=== PATIENT | female | born 1960 | race African-American/Black ===

== ENCOUNTER 2017-04-03 01:37 | Emergency (ER) | payer MEDICARE, MEDICAID ==
[~2017-04-03] VITALS: Ht 170.2 cm; Wt 95.3 kg
[2017-04-03] MEDS ORDERED: Acetaminophen 500mg (ES) tab ORAL ONE (01:45)
[2017-04-03] MEDS ORDERED: LORazepam Inj 2mg/ml 1ml IV ONE (01:45)
[2017-04-03] MEDS ORDERED: NS 1000ml 2,900 ML IVLG ONE (01:45)
[2017-04-03] MEDS ORDERED: METOPROLOL TAR100 M1 ORAL (01:48)
[2017-04-03] MEDS ORDERED: VITAMIN D400 INTLU ORAL (01:48)
[2017-04-03] MEDS ORDERED: TRANSDERM-SCOP1.5 MG TD (01:48)
[2017-04-03] MEDS ORDERED: PERIDEX15 ML MM (01:48)
[2017-04-03] MEDS ORDERED: ACETAMINOPHEN325 M1 ORAL (01:48)
[2017-04-03] MEDS ORDERED: PEPCID20 MG ORAL (01:48)
[2017-04-03] MEDS ORDERED: KEPPRA LIQ100 MG/1 M ORAL (01:48)
[2017-04-03] MEDS ORDERED: SENNA8.6 M2 PO (01:48)
--- NOTE | 2017-04-03 01:51 | Emergency Room Report ---
History of Present Illness General Chief Complaint: Fever Source: Medical Record, EMS Present Illness HPI This is a 57-year-old female with a history of anoxic brain injury. She has seizure also. She is bed bound with tracheostomy and feeding tube. She is a DO NOT RESUSCITATE with comfort care. She is a [facility] patient. Patient presents with chief complaint of fever and tachycardia. According to EMS, fever was up to 104. Patient with tachycardia also. Unknown other complaint. Patient came from intermediate. History is through the intermediate note and EMS. Allergies: Coded Allergies: No Known Allergies (Unverified , 04/03/17) Patient History Past Medical History: see triage record, old chart reviewed Past Surgical History: other Pertinent Family History: none Social History: Denies: smoking Last Menstrual Period: n/a Now: No Immunizations: UTD Reviewed Nursing Documentation: PMH: Agreed, PSxH: Agreed Nursing Documentation-PMH Past Medical History: No History, Except For Hx Hypertension: Yes Hx Seizures: Yes - EPILEPSY Review of Systems Constitutional: Reports: fever All Other Systems: limited - Secondary to patient condition Physical Exam Vital Signs Date Time Temp Pulse Resp B/P Pulse Ox O2 Delivery O2 Flow Rate FiO2 04/03/17 01:32 104.0 147 23 95/52 95 Mechanical Ventilator vitals with fever and tachycardia. Also hypotension. Sp02 EP Interpretation: reviewed, abnormal General Appearance: moderate distress, lethargic, Chronically Ill Head: normocephalic, atraumatic Eyes: bilateral eye EOMI, bilateral eye PERRL ENT: dry mucus membranes Neck: full range of motion, supple, no meningismus, other - Tracheostomy tube clean and intact Respiratory: chest non-tender, decreased breath sounds, rhonchi Cardiovascular #1: regular rate, rhythm, no murmur, tachycardia Gastrointestinal: normal bowel sounds, non tender, no mass, no organomegaly, no bruit, non-distended, other - Feeding tube intact Musculoskeletal: other - Patient has contracted Neurologic: other - Patient with twitching of her face Psychiatric: mood/affect normal Skin: warm/dry Procedures Critical Care Time Critical Care Time Critical care is mandated in this patient who presented with sepsis. Patient require my urgent intervention to attenuate the risks of metabolic collapse which may lead to cardiovascular collapse and . Critical care time is 35 minutes excluding any reportable procedure. Critical care time included evaluation, multiple reevaluation, looking at old charts, interpreting laboratory and diagnostic data, discussing case with patient and family and consultants, and charting. Medical Decision Making Diagnostic Impression: Primary Impression: Sepsis Qualified Codes: A41.9 - Sepsis, unspecified organism Additional Impressions: Aspiration pneumonia Qualified Codes: J69.0 - Pneumonitis due to inhalation of food and vomit Anemia Qualified Codes: D64.9 - Anemia, unspecified Dehydration Hyperglycemia Seizure disorder ER Course Presents with fever and tachycardia. It appeared that she had a seizure. Unknown duration. This may explain the fever and Procardia. She may be septic secondary to pneumonia/aspiration. May be a mild urinary tract infection. Creatinine is 2.7 at baseline. I discussed the case with her [place] doctor who accepted the patient for transfer. Lab Results Impression labs with elevated bun/creat EKG Diagnostic Results Rate: tachycardiac Rhythm: NSR ST Segments: no acute changes Rhythm Strip Diag. Results EP Interpretation: yes Rate: 130 Rhythm: NSR, no PVC's, no ectopy Chest X-Ray Diagnostic Results EP Interpretation: Yes Findings: no effusion, no pneumothorax, no acute cardiopulmonary disease, other - rll infiltrate Number of Views: 1 Last Vital Signs Date Time Temp Pulse Resp B/P Pulse Ox O2 Delivery O2 Flow Rate FiO2 04/03/17 01:32 104.0 147 23 95/52 95 Mechanical Ventilator Status: improved Disposition: ER [facility] CHILO MURPHY M.D. April 03, 2017 01:51
[2017-04-03 02:06] LABS: MEAN CORPUSCULAR HEMOGLOBIN 27.5 PG (27.0-31.0); MEAN CORPUSCULAR HGB CONC 32.9 G/DL (32.0-36.0); MEAN CORPUSCULAR VOLUME 84 FL (80-99); MEAN PLATELET VOLUME 8.4 FL (6.5-10.1); PLATELET COUNT 243 K/UL (150-450); RED BLOOD COUNT 3.62 M/UL (4.20-5.40); RED CELL DISTRIBUTION WIDTH 12.5 % (11.6-14.8); WHITE BLOOD COUNT 11.4 K/UL (4.8-10.8)
[2017-04-03 02:10] LABS: ABG BASE EXCESS 1.6; ABG PCO2 33.9 mmHg (35.0-45.0)
[2017-04-03 02:11] LABS: ABG ALLEN TEST POSITIVE
[2017-04-03 02:18] LABS: INR 1.3 (0.9-1.1); PROTHROMBIN TIME 13.6 SEC (9.30-11.50)
[2017-04-03 02:22] LABS: ALANINE AMINOTRANSFERASE 56 U/L (3-33); ALBUMIN/GLOBULIN RATIO 0.5 (1.0-2.7); ANION GAP 17 (5-15); ASPARTATE AMINO TRANSFERASE 34 U/L (5-40); CALCIUM 8.1 mg/dL (8.6-10.2); CARBON DIOXIDE 24 mEQ/L (20-30); CHLORIDE 92 mEQ/L (98-107); CREATININE 2.4 mg/dL (0.5-0.9); HEMOLYSIS 2; SODIUM 133 mEQ/L (135-145); TOTAL PROTEIN 6.5 g/dL (6.6-8.7)
[2017-04-03 02:29] LABS: REFLEX LACTIC ACID YES OR NO YES
[2017-04-03 02:30] VITALS: BP 131/90
[2017-04-03 02:30] LABS: TROPONIN I < 0.30 ng/mL (<=0.30)
[2017-04-03 02:33] LABS: APPEARANCE,URINE SLIGHTLY CLOUDY; KETONES,URINE NEGATIVE (NEGATIVE); LEUKOCYTE ESTERASE ,URINE 3+ (NEGATIVE); NITRITE,URINE POSITIVE (NEGATIVE); PH,URINE 7 (4.5-8.0); PROTEIN,URINE 3+ (NEGATIVE); UROBILINOGEN,URINE 4 MG/DL (0.0-1.0)
[2017-04-03 02:38] LABS: ANISOCYTOSIS 1+; BAND NEUTROPHILS % (MANUAL) 0 % (0-8); BASOPHILS % (MANUAL) 1 % (0-2); EOSINOPHILS % (MANUAL) 0 % (0-3); HYPOCHROMASIA 1+; LYMPHOCYTES % (MANUAL) 8 % (20-45); NEUTROPHILS % (MANUAL) 88 % (45-75); PLATELET ESTIMATE ADEQUATE; PLATELET MORPHOLOGY NORMAL; SPHEROCYTES 1+; TOTAL CELLS COUNTED 100
[2017-04-03 02:43] LABS: RBC,URINE 20-30 /HPF (0 - 2); WBC,URINE 20-30 /HPF (0 - 2)
[2017-04-03 02:44] LABS: BACTERIA,URINE FEW /HPF; ICTOTEST POSITIVE; SQUAMOUS EPITHELIAL CELL,UR FEW /LPF (NONE/OCC)
[2017-04-03] MEDS ORDERED: levETIRAcetam 500mg vial IV ONE (02:53)
[2017-04-03] MEDS ORDERED: Piperacillin/Tazobactam 4.5 GM in NS 110 ML IVPB ONE (03:00)
[2017-04-03] MEDS ORDERED: levETIRAcetam 500 MG in D5W 110 ML IVPB ONE (03:00)
[2017-04-03] MEDS ORDERED: Zosyn 4.5gm inj ONE (03:12)
[2017-04-03 03:30] VITALS: BP 110/91
[2017-04-03 03:40] LABS: BILIRUBIN,DIRECT 5.1 mg/dL (0.1-0.3)
[2017-04-03 03:50] LABS: CKMB < 1.5 ng/mL (< 3.8)
[2017-04-03 04:52] VITALS: BP 93/73
[2017-04-03 04:58] VITALS: BP 124/85
[2017-04-03 05:17] VITALS: BP 93/73
--- NOTE | 2017-04-03 12:54 | Diagnostic Imaging Report ---
Indication: Chest pain Technique: One view of the chest Comparison: none Findings: The patient is rotated to the right. There is a tracheostomy. There is some atelectasis in the right perihilar region. The lungs and pleural spaces otherwise clear. Heart size is normal. Degenerative changes of the left shoulder are incidentally noted Impression: Right perihilar atelectasis. No acute process otherwise Tracheostomy
--- NOTE | 2017-04-03 16:40 | Cardiology Report ---
APPROVED REPORT EKG Measurement Heart [id number] Sinus tachycardia Otherwise normal ECG
== END 2017-04-03 05:28 | disposition short-term general hospital (02) ==
LOC: EDBD 01:37 → EMR 01:44
DX: A41.9 Sepsis, unspecified organism (principal); J69.0 Pneumonitis due to inhalation of food and vomit; I10 Essential (primary) hypertension; G40.909 Epilepsy, unspecified, not intractable, without status epilepticus; Z66 Do not resuscitate; Z93.0 Tracheostomy status
CPT/HCPCS: 36415; 36600; 71010; 80053; 81003; 82248; 82550; 82553; 82803; 82962; 83605; 84484; 85007; 85025; 85610; 85730; 87040; 87081; 87086; 87181; 93005; 94002; 96374; 96375; 99291; J1953; J1956; J2543

== ENCOUNTER 2018-05-12 12:30 | Inpatient (IN) | payer MEDICARE, MEDICAID ==
[~2018-05-12] VITALS: Ht 170.2 cm; Wt 90.7 kg
[2018-05-12 12:30] VITALS: BP_SYST 173; BP_SYST 85; BP_DIAS 108; BP_DIAS 60
[~2018-05-12 12:30] MED LIST: ACETAMINOPHEN325 M1 ORAL; KEPPRA LIQ100 MG/1 M ORAL; METOPROLOL TAR100 M1 ORAL; PEPCID20 MG GT; PERIDEX15 ML MM; SENNA8.6 M2 GT; TRANSDERM-SCOP1.5 MG TD; VITAMIN D400 INTLU ORAL
[2018-05-12] MEDS ORDERED: ATIVAN2 MG/1 ML IM (12:51)
[2018-05-12] MEDS ORDERED: VITAMIN D1000 UNI1 GT (12:51)
[2018-05-12] MEDS ORDERED: METOPROLOL TAR100 M1 GT (12:51)
[2018-05-12] MEDS ORDERED: DOCUSATE SODIU100 MG GT (12:51)
[2018-05-12] MEDS ORDERED: FOLIC ACID0.4 MG GT (12:51)
[2018-05-12] MEDS ORDERED: DIAZEPAM2 MG GT (12:51)
[2018-05-12] MEDS ORDERED: ASPIR 8181 MG GT (12:51)
[2018-05-12] MEDS ORDERED: IPRATROPIU0.2 MG/1 M HHN ×2 (12:51)
[2018-05-12] MEDS ORDERED: MINERAL OIL EN133 ML RC (12:51)
[2018-05-12] MEDS ORDERED: ALBUTEROL2.5 MG/3 M INH (12:51)
[2018-05-12] MEDS ORDERED: PERIDEX15 ML MM (12:51)
[2018-05-12] MEDS ORDERED: BISCOLAX10 MG RC (12:51)
[2018-05-12] MEDS ORDERED: ACETAMINOP160 MG/5 M GT (12:51)
[2018-05-12] MEDS ORDERED: LEVETIRACE100 MG/1 M GT (12:51)
[2018-05-12] MEDS ORDERED: MULTI-DELYN237 ML GT (12:51)
[2018-05-12] MEDS ORDERED: ATIVAN1 MG GT (12:51)
[2018-05-12] MEDS ORDERED: PHENYTOIN125 MG/5 M PO (12:51)
[2018-05-12 13:03] LABS: APPEARANCE,URINE CLOUDY; BILIRUBIN, URINE 1+ (NEGATIVE); COLOR,URINE BROWN; GLUCOSE, URINE (UA) NEGATIVE (NEGATIVE); KETONES,URINE NEGATIVE (NEGATIVE); LEUKOCYTE ESTERASE ,URINE 1+ (NEGATIVE); NITRITE,URINE NEGATIVE (NEGATIVE); PH,URINE 5 (4.5-8.0); PROTEIN,URINE 1+ (NEGATIVE); UROBILINOGEN,URINE 4 MG/DL (0.0-1.0)
[2018-05-12 13:11] LABS: ANION GAP 11 mmol/L (5-15); BLOOD UREA NITROGEN 69 mg/dL (7-18); CALCIUM 8.5 MG/DL (8.5-10.1); CARBON DIOXIDE 26 MMOL/L (21-32); CHLORIDE 105 MMOL/L (98-107); CREATININE 2.1 MG/DL (0.55-1.30); POTASSIUM 5.1 MMOL/L (3.5-5.1); SODIUM 142 MMOL/L (136-145)
[2018-05-12 13:12] LABS: HEMATOCRIT 40.6 % (37.0-47.0); HEMOGLOBIN 12.5 G/DL (12.0-16.0); MEAN CORPUSCULAR VOLUME 89 FL (80-99); PLATELET COUNT 745 K/UL (150-450); RED BLOOD COUNT 4.55 M/UL (4.20-5.40); RED CELL DISTRIBUTION WIDTH 14.9 % (11.6-14.8)
[2018-05-12 13:24] LABS: ALANINE AMINOTRANSFERASE 56 U/L (12-78); ALBUMIN 1.8 G/DL (3.4-5.0); ALBUMIN/GLOBULIN RATIO 0.3 (1.0-2.7); ALKALINE PHOSPHATASE 276 U/L (46-116); ASPARTATE AMINO TRANSFERASE 38 U/L (15-37); BILIRUBIN,TOTAL 0.9 MG/DL (0.2-1.0); CKMB < 0.5 NG/ML (0.0-3.6); CREATINE KINASE 31 U/L (26-308)
[2018-05-12 13:30] VITALS: BP 96/69
[2018-05-12] MEDS ORDERED: Azithromycin 500 MG in NS 275 ML IV ONE (13:45)
[2018-05-12] MEDS ORDERED: Piperacillin/Tazobactam 3.375 GM in NS 110 ML IVPB ONE (13:45)
[2018-05-12] MEDS ORDERED: Acetaminophen 650 MG SUPP RECTAL ONE (13:45)
--- NOTE | 2018-05-12 14:15 | Diagnostic Imaging Report ---
Indication: Dyspnea Comparison: 04/03/2017 A single view chest radiograph was obtained. Findings: Right hemithorax is opacified secondary to a moderate to large pleural effusion. Tracheostomy noted. Left lung appears clear. IMPRESSION: Right pleural effusion
--- NOTE | 2018-05-12 14:37 | Emergency Room Report ---
History of Present Illness General Chief Complaint: Dyspnea/Respdistress Source: Patient, EMS Present Illness HPI 58-year-old female presents ED for respiratory distress. Coming from [facility]. Nursing staff noted that patient was hypotensive and appeared short of breath 1 day. Patient has trach, on ventilator. Patient is nonverbal at baseline. Patient is DO NOT RESUSCITATE, comfort measures. Patient is febrile. Unable to provide any additional history at this time. No other aggravating relieving factors. Other associated symptoms Allergies: Coded Allergies: No Known Allergies (Unverified , 04/03/17) Patient History Past Medical History: HTN, seizures Past Surgical History: none Pertinent Family History: none Social History: Denies: smoking, alcohol use, drug use Last Menstrual Period: n/a Now: No Immunizations: UTD Reviewed Nursing Documentation: PMH: Agreed; PSxH: Agreed Nursing Documentation-PMH Hx Hypertension: Yes Hx Seizures: Yes Review of Systems All Other Systems: limited Physical Exam Vital Signs Date Time Temp Pulse Resp B/P (MAP) Pulse Ox O2 Delivery O2 Flow Rate FiO2 05/12/18 12:17 99.0 140 30 56/31 100 Mechanical Ventilator 99.0 05/12/18 12:30 15.0 40 Sp02 EP Interpretation: reviewed, normal General Appearance: other - nonverbal Head: normocephalic Eyes: bilateral eye normal inspection, bilateral eye PERRL ENT: hearing grossly normal, normal pharynx, no angioedema, normal voice Neck: tracheotomy Respiratory: decreased breath sounds, crackles Cardiovascular #1: no edema, tachycardia Gastrointestinal: normal inspection Rectal: deferred Genitourinary: no CVA tenderness Musculoskeletal: normal inspection Neurologic: other - nonverbal Psychiatric: other Skin: normal inspection Lymphatic: normal inspection Procedures Critical Care Time Critical Care Time i. I feel this is a highly complex case requiring extensive working including EKG/Rhythm strip, Xray/CT/US, Blood/urine lab work, repeat exams while in ED, and administration of strong opiates/narcotics for pain control, admission to hospital or close patient follow up. Total time: 30 min bedside evaluation and treatment excludes procedures (EKG). Reason for critical care: respriatory distress, hypotensive, sepsis Possible complications: hypotension, hypertension, PA, shock, arrhythmias, metabolic acidosis, end organ damage, respiratory failure. Interventions: labs, ivfs, ekg, cxr, abx Course: patient presenting with resp distress. hypotensive. febrile. given rectal tylenol. significant leukocytosis, lactate > 2, UA + bacteria. BP improved with IVFs. given broad spectrum abx Consultations: nursing staff, EMS, family Performed by: Dr Limon Tolerated well condition = serious j. because of unstable vital signs this patient had a condition that could potentially threaten life or limb. I feel this is a critical patient who required my full attention while patient was considered critical. Total Critical Care Time excluding procedures was greater than 35 minutes Medical Decision Making Diagnostic Impression: Primary Impression: Sepsis Qualified Codes: A41.9 - Sepsis, unspecified organism Additional Impressions: UTI (urinary tract infection) Qualified Codes: N39.0 - Urinary tract infection, site not specified Pleural effusion Renal insufficiency ER Course Hospital Course 58 yo F presents to ED with SOB, hypotensive, fever Differential diagnoses include: Pneumonia, UTI, sepsis, dehydration, PA/ unstable angina Clinical course Patient placed on stretcher. 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 After initial history and physical, I ordered labs, IV fluids, EKG, chest x- ray, blood cultures, UA. given rectal tylenol Labs - BUN/Cr elevated, marked leukocytosis, troponins negative, UA grossly positive for UTI, lactate > 2 EKG - sinus tachycardia no acute ischemic changes interpreted by me CXR - large R pleural effusion Abx given. Blood pressure initially low improved with IV fluids. Patient is DO NOT RESUSCITATE, comfort measures. Patient is [facility] patient however given unstable vitals approved patient to stay here Case discussed with Dr Bell and they agreed to admit patient to their service for further care and support I feel this is a highly complex case requiring extensive working including EKG/ Rhythm strip, Xray/CT/US, Blood/urine lab work, repeat exams while in ED, and administration of strong opiates/narcotics for pain control, admission to hospital or close patient follow up. Diagnosis - sepsis, UTI, pleural effusion, renal insufficiency Patient admitted to SDU in serious condition Labs Test 05/12/18 12:35 White Blood Count 36.0 K/UL (4.8-10.8) Red Blood Count 4.55 M/UL (4.20-5.40) Hemoglobin 12.5 G/DL (12.0-16.0) Hematocrit 40.6 % (37.0-47.0) Mean Corpuscular Volume 89 FL (80-99) Mean Corpuscular Hemoglobin 27.5 PG (27.0-31.0) Mean Corpuscular Hemoglobin Concent 30.8 G/DL (32.0-36.0) Red Cell Distribution Width 14.9 % (11.6-14.8) Platelet Count 745 K/UL (150-450) Mean Platelet Volume 6.1 FL (6.5-10.1) Neutrophils (%) (Auto) % (45.0-75.0) Lymphocytes (%) (Auto) % (20.0-45.0) Monocytes (%) (Auto) % (1.0-10.0) Eosinophils (%) (Auto) % (0.0-3.0) Basophils (%) (Auto) % (0.0-2.0) Differential Total Cells Counted 100 Neutrophils % (Manual) 82 % (45-75) Lymphocytes % (Manual) 3 % (20-45) Monocytes % (Manual) 8 % (1-10) Eosinophils % (Manual) 0 % (0-3) Basophils % (Manual) 0 % (0-2) Band Neutrophils 7 % (0-8) Platelet Estimate Increased Platelet Morphology Normal Anisocytosis 1+ Target Cells 1+ Urine Color Brown Urine Appearance Cloudy Urine pH 5 (4.5-8.0) Urine Specific [place] 1.015 (1.005-1.035) Urine Protein 1+ (NEGATIVE) Urine Glucose (UA) Negative (NEGATIVE) Urine Ketones Negative (NEGATIVE) Urine Occult Blood 1+ (NEGATIVE) Urine Nitrite Negative (NEGATIVE) Urine Bilirubin 1+ (NEGATIVE) Urine Ictotest Negative Urine Urobilinogen 4 MG/DL (0.0-1.0) Urine Leukocyte Esterase 1+ (NEGATIVE) Urine RBC 5-10 /HPF (0 - 2) Urine WBC 2-4 /HPF (0 - 2) Urine Squamous Epithelial Cells Moderate /LPF (NONE/OCC) Urine Amorphous Sediment Many /LPF (NONE) Urine Bacteria Moderate /HPF (NONE) Sodium Level 142 MMOL/L (136-145) Potassium Level 5.1 MMOL/L (3.5-5.1) Chloride Level 105 MMOL/L (98-107) Carbon Dioxide Level 26 MMOL/L (21-32) Anion Gap 11 mmol/L (5-15) Blood Urea Nitrogen 69 mg/dL (7-18) Creatinine 2.1 MG/DL (0.55-1.30) Estimat Glomerular Filtration Rate 29.1 mL/min (>60) Glucose Level 151 MG/DL (74-106) Lactic Acid Level 2.80 mmol/L (0.4-2.0) Calcium Level 8.5 MG/DL (8.5-10.1) Total Bilirubin 0.9 MG/DL (0.2-1.0) Aspartate Amino Transf (AST/SGOT) 38 U/L (15-37) Alanine Aminotransferase (ALT/SGPT) 56 U/L (12-78) Alkaline Phosphatase 276 U/L (46-116) Total Creatine Kinase 31 U/L (26-308) Creatine Kinase MB < 0.5 NG/ML (0.0-3.6) Creatine Kinase MB Relative Index 1.6 Troponin I 0.000 ng/mL (0.000-0.056) Pro-B-Type Natriuretic Peptide 1332 pg/mL (0-125) Total Protein 7.9 G/DL (6.4-8.2) Albumin 1.8 G/DL (3.4-5.0) Globulin 6.1 g/dL Albumin/Globulin Ratio 0.3 (1.0-2.7) EKG Diagnostic Results Rate: tachycardiac Rhythm: NSR ST Segments: no acute changes ASA given to the pt in ED: No Rhythm Strip Diag. Results EP Interpretation: yes Rhythm: NSR, no PVC's, no ectopy Chest X-Ray Diagnostic Results Chest X-Ray Diagnostic Results : Chest X-Ray Ordered: Yes # of Views/Limited/Complete: 1 View Indication: Shortness of Breath EP Interpretation: Yes Interpretation: no consolidation, no pneumothorax, other - large R pleural effusion Impression: Other - R pleural effusion Electronically Signed by: Electronically signed by Torey Limon MD Last Vital Signs Date Time Temp Pulse Resp B/P (MAP) Pulse Ox O2 Delivery O2 Flow Rate FiO2 05/12/18 13:47 102.4 05/12/18 12:33 130 32 40 05/12/18 12:30 Mechanical Ventilator 05/12/18 12:30 85/60 95 05/12/18 12:30 15.0 Status: improved Disposition: ADMITTED INPATIENT Condition: Serious Referrals: [facility] (PCP) Torey Limno MD May 12, 2018 14:37
[2018-05-12 15:15] VITALS: BP 104/69
[2018-05-12] MEDS ORDERED: LORazepam Inj 2mg/ml 1ml IV ONE (15:30)
[2018-05-12 15:39] VITALS: BP 108/68
[2018-05-12] MEDS ORDERED: levETIRAcetam 1,000mg/NS100ml 100 ML IVPB ONE (16:00)
[2018-05-12 17:20] VITALS: BP 104/60
[2018-05-12] MEDS: Albuterol/Ipratropium 3ml neb HHN SCH ×2 (19:24→22:39)
[2018-05-12 20:00] VITALS: BP 112/73
[2018-05-12] MEDS ORDERED: Vancomycin 1.5 GM/D5W 250ML IVPB ONE (20:00)
[2018-05-12] MEDS: Sennosides 8.6mg ORAL SCH (20:45)
[2018-05-12] MEDS: Phenytoin Susp 100mg/4ml NG SCH (20:45)
[2018-05-12] MEDS: levETIRAcetam 500mg/5ml Liquid NG SCH (20:52)
[2018-05-12] MEDS: Piperacillin/Tazobactam 3.375 GM in D5W 110 ML IVPB SCH (23:00)
[2018-05-13] VITALS: BP 114/54
[2018-05-13] MEDS: LORazepam Inj 2mg/ml 1ml IV PRN ×2 (01:26→18:28)
[2018-05-13] MEDS: Levalbuterol Inh UD 1.25mg/0.5ml HHN SCH ×4 (01:46→18:57)
--- NOTE | 2018-05-13 02:30 | History and Physical Report ---
DATE OF ADMISSION: 05/12/2018 REASON FOR ADMISSION: Multiorgan dysfunction, respiratory failure, and hypotension. HISTORY: This is a 58-year-old female with respiratory distress, who comes from the detention with hypotension and shortness of breath. The patient is tracheostomy and ventilator dependent. The patient is not verbal. She is a Do Not Resuscitate per review and also comfort measures. The patient is not verbal at this time. She is unable to give any history. PAST MEDICAL HISTORY: Notable for hypertension, seizures, respiratory failure, tracheostomy, and failure to thrive. MEDICATION: Reviewed. ALLERGIES: Reviewed. REVIEW OF SYSTEMS: Difficult to obtain. PHYSICAL EXAMINATION: GENERAL: An ill-appearing female, appears older than stated age. VITAL SIGNS: respirations 15, blood pressure 108/68, and sats 100%. HEENT: Fairly negative. NECK: Supple. Tracheostomy is in midline. LUNGS: With reduced air entry specifically in the right lung. CARDIAC: S1 and S2. The patient is currently regular rate and rhythm. ABDOMEN: Soft and nontender. EXTREMITIES: No cyanosis or clubbing. LABORATORY DATA: Reviewed. White count 36. Platelets noted. Chemistries noted. BUN and creatinine are 69 and 2.1. Lactic acid 2.8. Albumin is 1.8. IMPRESSION: 1. Large right pleural effusion. 2. Respiratory failure. 3. Tracheostomy. 4. Acute on chronic renal failure. 5. Lactic acidemia. 6. Leukocytosis. 7. Possible sepsis. 8. Severe protein-calorie malnutrition. RECOMMENDATIONS: Supportive care. As per family, the patient is comfort measures. We will give antibiotics. Monitor clinically. Discussed thoracentesis, respiratory failure. Ventilator management as outlined. Feedings as outlined. Hydration as able. Obtain ID evaluation and monitor clinically and transfer to [place] and/or hospice pending re-evaluation. Ankit Bell M.D. DR: [place] JOB#: [id number] CC: YONATAN
[2018-05-13 04:00] VITALS: BP 110/59
[2018-05-13 04:51] LABS: HEMATOCRIT 35.5 % (37.0-47.0); HEMOGLOBIN 11.2 G/DL (12.0-16.0); MEAN CORPUSCULAR VOLUME 89 FL (80-99); PLATELET COUNT 609 K/UL (150-450); RED BLOOD COUNT 3.97 M/UL (4.20-5.40); RED CELL DISTRIBUTION WIDTH 14.9 % (11.6-14.8)
[2018-05-13 05:11] LABS: ANION GAP 16 mmol/L (5-15); BLOOD UREA NITROGEN 61 mg/dL (7-18); CARBON DIOXIDE 21 MMOL/L (21-32); CHLORIDE 109 MMOL/L (98-107); CREATININE 1.6 MG/DL (0.55-1.30); POTASSIUM 4.4 MMOL/L (3.5-5.1); SODIUM 146 MMOL/L (136-145)
[2018-05-13 05:12] LABS: WHITE BLOOD COUNT 34.6 K/UL (4.8-10.8)
[2018-05-13] MEDS: Piperacillin/Tazobactam 3.375 GM in D5W 110 ML IVPB SCH ×3 (06:11→21:34)
[2018-05-13 08:00] VITALS: BP 103/66
--- NOTE | 2018-05-13 08:34 | General Progress Note ---
Assessment/Plan Assessment/Plan IMPRESSION: 1. Large right pleural effusion. 2. Respiratory failure. 3. Tracheostomy. 4. Acute on chronic renal failure. 5. Lactic acidemia. 6. Leukocytosis. 7. Possible sepsis. 8. Severe protein-calorie malnutrition. PLAN tap hydration renal and ID to see follow up labs wbc still elevated monitor hemodynamics t/f zuniga once stable DNR Subjective Allergies: Coded Allergies: No Known Allergies (Unverified , 04/03/17) Subjective NPO poor LOC DNR Objective Last 24 Hour Vital Signs Date Time Temp Pulse Resp B/P (MAP) Pulse Ox O2 Delivery O2 Flow Rate FiO2 05/13/18 06:53 137 24 100 Mechanical Ventilator 70 05/13/18 06:43 138 30 99 Mechanical Ventilator 50 05/13/18 06:40 135 30 50 05/13/18 05:09 125 23 50 05/13/18 04:00 15.0 100 05/13/18 04:00 118 05/13/18 04:00 Mechanical Ventilator 05/13/18 04:00 98.9 118 28 110/59 (76) 100 98.9 05/13/18 02:41 109 18 60 05/13/18 01:46 116 14 100 Mechanical Ventilator 70 05/13/18 01:36 127 24 99 Mechanical Ventilator 70 05/13/18 01:22 127 24 80 05/13/18 00:00 Mechanical Ventilator 05/13/18 00:00 100.2 129 28 114/54 (74) 100 100.2 05/13/18 00:00 130 05/13/18 00:00 15.0 100 05/12/18 22:50 123 22 100 Mechanical Ventilator 80 05/12/18 22:40 122 24 100 05/12/18 22:40 122 14 100 Mechanical Ventilator 80 05/12/18 22:36 100.9 100.9 05/12/18 21:11 133 31 100 05/12/18 20:00 15.0 100 05/12/18 20:00 Mechanical Ventilator 05/12/18 20:00 15.0 100 05/12/18 20:00 99.9 134 20 112/73 (86) 100 99.9 05/12/18 20:00 132 05/12/18 19:39 77 22 98 Mechanical Ventilator 100 05/12/18 19:32 75 25 Mechanical Ventilator 100 05/12/18 19:31 75 25 97 Mechanical Ventilator 100 05/12/18 19:29 75 25 100 05/12/18 18:00 86 05/12/18 18:00 135 05/12/18 17:30 Mechanical Ventilator 05/12/18 17:20 99.0 118 28 104/60 (75) 96 99.0 05/12/18 17:08 110 25 100 05/12/18 16:30 102.2 15 24 108/68 100 Mechanical Ventilator 15.0 40 102.2 05/12/18 15:39 102.2 15 24 108/68 100 Mechanical Ventilator 15.0 40 102.2 05/12/18 15:30 15.0 100 05/12/18 15:15 117 24 104/69 100 Mechanical Ventilator 15.0 40 05/12/18 14:33 115 17 100 05/12/18 14:17 102.2 05/12/18 13:47 102.4 05/12/18 13:30 114 23 96/69 99 Mechanical Ventilator 15.0 40 05/12/18 12:33 130 32 40 05/12/18 12:30 119 25 Mechanical Ventilator 05/12/18 12:30 102.0 119 25 85/60 95 Mechanical Ventilator 102.0 05/12/18 12:30 15.0 40 05/12/18 12:17 99.0 140 30 56/31 100 Mechanical Ventilator 99.0 Intake and Output 05/12/18 05/13/18 19:00 07:00 Intake Total 4115 ml 1060.0 ml Output Total 300 ml 800 ml Balance 3815 ml 260.0 ml Intake Free Water 30 ml IV Total 4085 ml 1060.0 ml Output Urine Total 300 ml 800 ml # Voids 1 Laboratory Tests 05/12/18 12:35: White Blood Count 36.0*H, Red Blood Count 4.55, Hemoglobin 12.5, Hematocrit 40.6 , Mean Corpuscular Volume 89, Mean Corpuscular Hemoglobin 27.5, Mean Corpuscular Hemoglobin Concent 30.8L, Red Cell Distribution Width 14.9H, Platelet Count 745H, Mean Platelet Volume 6.1L, Neutrophils (%) (Auto) , Lymphocytes (%) (Auto) , Monocytes (%) (Auto) , Eosinophils (%) (Auto) , Basophils (%) (Auto) , Differential Total Cells Counted 100, Neutrophils % ( Manual) 82H, Lymphocytes % (Manual) 3L, Monocytes % (Manual) 8, Eosinophils % ( Manual) 0, Basophils % (Manual) 0, Band Neutrophils 7, Platelet Estimate IncreasedH, Platelet Morphology Normal, Anisocytosis 1+, Target Cells 1+, Urine Color Brown, Urine Appearance Cloudy, Urine pH 5, Urine Specific [place] 1.015, Urine Protein 1+H, Urine Glucose (UA) Negative, Urine Ketones Negative, Urine Occult Blood 1+H, Urine Nitrite Negative, Urine Bilirubin 1+H, Urine Ictotest Negative, Urine Urobilinogen 4H, Urine Leukocyte Esterase 1+H, Urine RBC 5-10H, Urine WBC 2-4, Urine Squamous Epithelial Cells ModerateH, Urine Amorphous Sediment ManyH, Urine Bacteria ModerateH, Sodium Level 142, Potassium Level 5.1 , Chloride Level 105, Carbon Dioxide Level 26, Anion Gap 11, Blood Urea Nitrogen 69H, Creatinine 2.1H, Estimat Glomerular Filtration Rate 29.1, Glucose Level 151H, Lactic Acid Level 2.80H, Calcium Level 8.5, Total Bilirubin 0.9, Aspartate Amino Transf (AST/SGOT) 38H, Alanine Aminotransferase (ALT/SGPT) 56, Alkaline Phosphatase 276H, Total Creatine Kinase 31, Creatine Kinase MB < 0.5, Creatine Kinase MB Relative Index 1.6, Troponin I 0.000, Pro-B-Type Natriuretic Peptide 1332H, Total Protein 7.9, Albumin 1.8L, Globulin 6.1, Albumin/Globulin Ratio 0.3L 05/12/18 15:20: Lactic Acid Level 5.30H 05/13/18 03:35: White Blood Count 34.6*H, Red Blood Count 3.97L, Hemoglobin 11.2L, Hematocrit 35.5L, Mean Corpuscular Volume 89, Mean Corpuscular Hemoglobin 28.2, Mean Corpuscular Hemoglobin Concent 31.5L, Red Cell Distribution Width 14.9H, Platelet Count 609H, Mean Platelet Volume 6.4L, Neutrophils (%) (Auto) , Lymphocytes (%) (Auto) , Monocytes (%) (Auto) , Eosinophils (%) (Auto) , Basophils (%) (Auto) , Differential Total Cells Counted 100, Neutrophils % ( Manual) 83H, Lymphocytes % (Manual) 7L, Monocytes % (Manual) 8, Eosinophils % ( Manual) 1, Basophils % (Manual) 1, Band Neutrophils 0, Platelet Estimate IncreasedH, Platelet Morphology Normal, Anisocytosis 1+, Sodium Level 146H, Potassium Level 4.4, Chloride Level 109H, Carbon Dioxide Level 21, Anion Gap 16H , Blood Urea Nitrogen 61H, Creatinine 1.6H, Estimat Glomerular Filtration Rate 39.9, Glucose Level 162H, Calcium Level 8.0L, Hypochromasia 1+, Random Vancomycin Level 20.1 Height (Feet): 5 Height (Inches): 7.00 Weight (Pounds): 200 Objective GENERAL: An ill-appearing female, withdrawn HEENT: Fairly negative. NECK: Supple. Tracheostomy is in midline. LUNGS: With reduced air entry specifically in the right lung. CARDIAC: S1 and S2. tachy ABDOMEN: Soft and nontender. EXTREMITIES: No cyanosis or clubbing. Ankti Bell MD May 13, 2018 08:34
[2018-05-13] MEDS: Docusate 100mg/10ml Liq GT SCH (10:15)
[2018-05-13] MEDS: Aspirin Baby 81mg ORAL SCH (10:15)
[2018-05-13] MEDS: Phenytoin Susp 100mg/4ml NG SCH ×2 (10:16→20:37)
[2018-05-13] MEDS: levETIRAcetam 500mg/5ml Liquid NG SCH ×2 (10:16→20:38)
[2018-05-13] MEDS: Vancomycin 1gm in D5W 275ml IVPB SCH (10:17)
[2018-05-13 11:02] LABS: INR 1.2 (0.9-1.1)
[2018-05-13 12:00] VITALS: BP 102/54
[2018-05-13] MEDS ORDERED: Lidocaine 1% Plain 30 ml INJ PRN (12:00)
--- NOTE | 2018-05-13 14:13 | Cardiology Report ---
APPROVED REPORT EKG Measurement Heart [id number] Sinus tachycardia Otherwise normal ECG
[2018-05-13] MEDS: Acetaminophen 650mg/20.3ml GT PRN ×2 (14:41→20:37)
[2018-05-13 16:00] VITALS: BP 134/57
[2018-05-13 20:00] VITALS: BP 93/44
[2018-05-13] MEDS: Sennosides 8.6mg ORAL SCH (20:38)
--- NOTE | 2018-05-13 21:45 | Consultation ---
DATE OF CONSULTATION: 05/13/2018 INFECTIOUS DISEASES CONSULTATION CONSULTING PHYSICIAN: Wallace Rodriguez M.D. REFERRING PHYSICIAN: Ankit Bell M.D. REASON FOR CONSULTATION: Pneumonia. HISTORY OF PRESENTING ILLNESS: This is a 58-year-old lady with history of hypertension, respiratory failure, status post tracheostomy, and seizures who comes in with shortness of breath. An Infectious Diseases consultation has been obtained for pneumonia and she was also found to have a leukocytosis. PAST MEDICAL HISTORY: 1. History of hypertension. 2. Seizures. 3. Respiratory failure, status post tracheostomy. SOCIAL HISTORY: Unknown. FAMILY HISTORY: Unknown. REVIEW OF SYSTEMS: Unable to obtain currently. MEDICATIONS: As an inpatient, she is on multivitamin, docusate, aspirin, vancomycin, levalbuterol, Ativan, Zosyn, Keppra, phenytoin, Senokot, and lorazepam. ALLERGIES: No known drug allergies. PHYSICAL EXAMINATION: VITAL SIGNS: Temperature of 101 degrees, T-max of 101 degrees, pulse of 141, respiratory rate 29, blood pressure 103/66 and O2 saturation of 100%. HEENT: Pupils equally reactive to light and accommodation. Mouth appears clean without thrush. NECK: Supple. No adenopathy. No JVD. Tracheostomy site appears clean. CARDIOVASCULAR: Regular rate and rhythm. No murmurs. LUNGS: Clear to auscultation bilaterally. No crackles. No wheezes. ABDOMEN: Soft and nontender. No organomegaly. G-tube site appears clean. EXTREMITIES: No cyanosis, no clubbing, and no edema. LABORATORY AND DIAGNOSTIC DATA: White count of 36 yesterday, white count of 34 today, hemoglobin 11.2, hematocrit 35.5, MCV platelet count of 609 and neutrophils of 83%. Sodium 146, potassium 4.4, chloride 109, bicarbonate 21, BUN 61, creatinine 1.6 and glucose 162. Calcium of 8. Total bilirubin 0.9. AST 38, ALT 56, and alkaline phosphatase 276. CK of 31. CK-MB less than 0.5. Beta-natriuretic peptide 1332. Total protein 7.9. Albumin 1.8. UA showing 2 to 4 white cells. Urine cultures showing no growth. Chest x-ray showing right-sided pleural effusion. ASSESSMENT: This is a 58-year-old lady with history of hypertension, seizures and respiratory failure, status post tracheostomy who comes in with leukocytosis and is found to have 1. Possible pneumonia. 2. Hypertension. 3. Seizures. 4. Renal failure is improving. PLAN: 1. Continue vancomycin and Zosyn for now. 2. We will order sputum for Gram-stain and culture. 3. We will follow up cultures and adjust antibiotics accordingly. I would like to thank, Dr. Bell, for this consultation. Wallace Rodriguez M.D. DR: SONY JOB#: [id number] CC: Ankit Bell M.D.; Fax#: [phone]
[2018-05-14] VITALS: BP_SYST 116; BP_SYST 93; BP_DIAS 44; BP_DIAS 69
[2018-05-14] MEDS: Levalbuterol Inh UD 1.25mg/0.5ml HHN SCH ×4 (01:00→19:00)
--- NOTE | 2018-05-14 02:15 | Consultation ---
DATE OF CONSULTATION: 05/13/2018 NEPHROLOGY CONSULTATION CONSULTING PHYSICIAN: Abdoulaye Harper M.D. ATTENDING PHYSICIAN: Ankit Bell M.D. REASON FOR CONSULTATION: Elevated BUN and creatinine. HISTORY OF PRESENT ILLNESS: This is a 58-year-old female from a subacute facility presents here with multiorgan dysfunction. The patient developed elevated BUN and creatinine. PAST MEDICAL HISTORY: 1. Ventilator-dependent respiratory failure. 2. Organic brain syndrome. 3. Anoxic encephalopathy. 4. Hypertensive cardiovascular disease. 5. Status post tracheostomy. MEDICATIONS: Multivitamin, sodium docusate, baby aspirin, IV vancomycin, lorazepam, Zosyn, Keppra, Dilantin, Senokot, IV fluids, and saline. ALLERGIES: None known drug allergies. FAMILY HISTORY: Unable to obtain due to mental status. SOCIAL HISTORY: Unable to obtain due to mental status. REVIEW OF SYSTEMS: Unable to obtain due to mental status. PHYSICAL EXAMINATION: GENERAL: This is an elderly female, who is on a ventilator. The patient is in no acute distress, otherwise. VITAL SIGNS: Blood pressure 102/54, pulse 140, sinus tach, and temperature 102 degrees. HEENT: The head is normocephalic and atraumatic. Pupils are equal, round, and reactive to light and accommodation consensually. NECK: Supple. Trachea midline. There was no lymphadenopathy or thyromegaly. LUNGS: Bilateral rhonchi. HEART: Tachycardia. S1 and S2. No rubs, murmurs, or gallops. ABDOMEN: Soft. Bowel sounds were active. She has a G-tube. EXTREMITIES: No clubbing, cyanosis, or edema. NEUROLOGICAL: She is obtunded. There were no gross focal findings. LABORATORY AND DIAGNOSTIC DATA: CBC shows white count 34,600. Chemistry, electrolytes within normal limits, BUN 61 and creatinine 1.6. Admission BUN 69 and creatinine 2.1. Urinalysis, 5 to 10 rbc's, many amorphous sediments and moderate amount of bacteria. ASSESSMENT: 1. Acute kidney injury, resolving. 2. Ventilator-dependent respiratory failure. 3. Organic brain syndrome. 4. Anoxic encephalopathy. 5. Hypertensive cardiovascular disease. 6. Status post tracheostomy. PLAN: 1. Continue current therapy. 2. I will follow together with attending physician. Abdoulaye Harper M.D. DR: IVA JOB#: [id number] CC: YONATAN
[2018-05-14 04:00] VITALS: BP 136/75
[2018-05-14] MEDS: Piperacillin/Tazobactam 3.375 GM in D5W 110 ML IVPB SCH ×3 (06:00→22:27)
[2018-05-14 08:00] VITALS: BP 134/73
[2018-05-14] MEDS: Phenytoin Susp 100mg/4ml NG SCH ×2 (08:28→22:26)
[2018-05-14] MEDS: Acetaminophen 650mg/20.3ml GT PRN ×3 (08:28→22:28)
[2018-05-14] MEDS: levETIRAcetam 500mg/5ml Liquid NG SCH ×2 (08:29→22:27)
[2018-05-14] MEDS: Docusate 100mg/10ml Liq GT SCH (08:29)
[2018-05-14] MEDS: Aspirin Baby 81mg ORAL SCH (08:29)
[2018-05-14] MEDS: Vancomycin 1gm in D5W 275ml IVPB SCH ×2 (08:30→10:19)
[2018-05-14 09:07] LABS: ANION GAP 10 mmol/L (5-15); BLOOD UREA NITROGEN 63 mg/dL (7-18); CALCIUM 8.1 MG/DL (8.5-10.1); CARBON DIOXIDE 22 MMOL/L (21-32); CHLORIDE 117 MMOL/L (98-107); CREATININE 1.4 MG/DL (0.55-1.30); POTASSIUM 3.8 MMOL/L (3.5-5.1); SODIUM 148 MMOL/L (136-145)
[2018-05-14 09:38] LABS: HEMATOCRIT 28.8 % (37.0-47.0); HEMOGLOBIN 8.9 G/DL (12.0-16.0); MEAN CORPUSCULAR VOLUME 87 FL (80-99); PLATELET COUNT 453 K/UL (150-450)
[2018-05-14 09:40] LABS: WHITE BLOOD COUNT 31.8 K/UL (4.8-10.8)
--- NOTE | 2018-05-14 10:59 | Discharge Summary ---
Discharge Summary Hospital Course Date of Admission May 12, 2018 at 14:33 Date of Discharge May 14, 2018 Admitting Diagnosis SOB HPI Elina Huntley is a 58 year old female who was admitted on May 12, 2018 at 14:33 for respiratory failure and sepsis. patient with acute on chronic renal failure. patient very ill. per family, DNR and comfort only. patient unresponsive. seen by renal and ID. patient started on antibiotics and cultures negative thus far. patient hemodynamics improved. patient ventilator dependent. renal function improved. beta brianna resumed for heart rate controlled. feeds resumed Consultations renal, ID, gastro Hospital Course 1. Large right pleural effusion. 2. Respiratory failure. vent dependent 3. Tracheostomy. 4. Acute on chronic renal failure. 5. Lactic acidemia. 6. Leukocytosis. 7. Possible sepsis. 8. Severe protein-calorie malnutrition. 9. hypertension 10. PSVT Discharge Discharge Disposition Patient was discharged to [facility] Ankit Bell MD May 14, 2018 10:59
[2018-05-14] MEDS ORDERED: Metoprolol Succinate XL 50mg tab ORAL SCH (11:30)
[2018-05-14 12:00] VITALS: BP 131/64
[2018-05-14] MEDS: LORazepam Inj 2mg/ml 1ml IV PRN (15:21)
[2018-05-14 16:00] VITALS: BP 119/71
[2018-05-14] MEDS ORDERED: Sterile Water Irrig 1000ml IRRIG ONE (16:56)
[2018-05-14 20:00] VITALS: BP 151/73
[2018-05-14] MEDS: Sennosides 8.6mg ORAL SCH (22:27)
[2018-05-15] VITALS: BP 125/68
[2018-05-15] MEDS: Levalbuterol Inh UD 1.25mg/0.5ml HHN SCH ×4 (00:46→19:00)
[2018-05-15] MEDS: LORazepam Inj 2mg/ml 1ml IV PRN (00:49)
[2018-05-15 04:00] VITALS: BP 128/78
[2018-05-15] MEDS: Piperacillin/Tazobactam 3.375 GM in D5W 110 ML IVPB SCH ×3 (06:01→21:41)
[2018-05-15 08:00] VITALS: BP 118/72
[2018-05-15 08:29] LABS: HEMATOCRIT 24.7 % (37.0-47.0); MEAN CORPUSCULAR VOLUME 87 FL (80-99); PLATELET COUNT 396 K/UL (150-450); RED BLOOD COUNT 2.85 M/UL (4.20-5.40); RED CELL DISTRIBUTION WIDTH 15.2 % (11.6-14.8)
--- NOTE | 2018-05-15 08:34 | General Progress Note ---
Assessment/Plan Assessment/Plan IMPRESSION: 1. Large right pleural effusion. 2. Respiratory failure. 3. Tracheostomy. 4. Acute on chronic renal failure. 5. Lactic acidemia. 6. Leukocytosis. 7. Possible sepsis. 8. Severe protein-calorie malnutrition. 9. tachycardia PLAN tap hydration increase beta brianna renal and ID to see follow up labs wbc still elevated and renal function poor monitor hemodynamics t/f zuniga once stable DNR Subjective Allergies: Coded Allergies: No Known Allergies (Unverified , 04/03/17) Subjective NPO poor LOC DNR Objective Last 24 Hour Vital Signs Date Time Temp Pulse Resp B/P (MAP) Pulse Ox O2 Delivery O2 Flow Rate FiO2 05/15/18 08:00 Mechanical Ventilator 05/15/18 08:00 40 05/15/18 07:50 125 18 100 Mechanical Ventilator 40 05/15/18 07:47 129 31 100 Mechanical Ventilator 40 05/15/18 07:42 127 23 40 05/15/18 07:38 128 05/15/18 04:31 117 26 40 05/15/18 04:00 98.8 115 22 128/78 (95) 98 98.8 05/15/18 04:00 Mechanical Ventilator 05/15/18 04:00 40 05/15/18 04:00 113 05/15/18 03:29 119 21 40 05/15/18 00:56 121 20 100 Mechanical Ventilator 40 05/15/18 00:46 125 24 40 05/15/18 00:46 125 23 100 Mechanical Ventilator 40 05/15/18 00:00 Mechanical Ventilator 05/15/18 00:00 98.6 122 21 125/68 (87) 100 98.6 05/15/18 00:00 132 05/14/18 23:06 134 20 40 05/14/18 22:58 99.8 05/14/18 22:28 103.3 05/14/18 21:11 133 21 40 05/14/18 20:00 40 05/14/18 20:00 103.3 136 25 151/73 (99) 98 103.3 05/14/18 20:00 Mechanical Ventilator 05/14/18 20:00 131 05/14/18 19:33 138 26 100 40 05/14/18 19:33 Mechanical Ventilator 05/14/18 19:30 138 27 40 05/14/18 16:52 129 22 50 05/14/18 16:00 98.4 136 24 119/71 (87) 98 98.4 05/14/18 16:00 50 05/14/18 16:00 Mechanical Ventilator 05/14/18 16:00 138 05/14/18 14:54 138 28 50 05/14/18 13:19 131 98 50 05/14/18 13:19 131 24 50 05/14/18 13:19 131 24 100 Mechanical Ventilator 05/14/18 12:30 115 131/64 05/14/18 12:20 50 05/14/18 12:00 Mechanical Ventilator 05/14/18 12:00 121 05/14/18 12:00 97.7 115 12 131/64 (86) 100 97.7 05/14/18 10:32 128 18 50 05/14/18 08:37 133 25 50 Intake and Output 05/14/18 05/15/18 19:00 07:00 Intake Total 1622.000 ml 1296.5 ml Output Total 200 ml 350 ml Balance 1422.000 ml 946.5 ml Intake Free Water 80 ml 100 ml IV Total 1182.000 ml 866.5 ml Tube Feeding 360 ml 330 ml Output Urine Total 200 ml 350 ml # Voids 2 Laboratory Tests 05/14/18 08:40: White Blood Count 31.8*H, Red Blood Count 3.30L, Hemoglobin 8.9L, Hematocrit 28.8L, Mean Corpuscular Volume 87, Mean Corpuscular Hemoglobin 26.9L, Mean Corpuscular Hemoglobin Concent 30.7L, Red Cell Distribution Width 15.0H, Platelet Count 453H, Mean Platelet Volume 6.7, Neutrophils (%) (Auto) , Lymphocytes (%) (Auto) , Monocytes (%) (Auto) , Eosinophils (%) (Auto) , Basophils (%) (Auto) , Differential Total Cells Counted 100, Neutrophils % ( Manual) 88H, Lymphocytes % (Manual) 3L, Monocytes % (Manual) 6, Eosinophils % ( Manual) 0, Basophils % (Manual) 0, Band Neutrophils 3, Platelet Estimate IncreasedH, Platelet Morphology Normal, Hypochromasia 1+, Anisocytosis 1+, Sodium Level 148H, Potassium Level 3.8, Chloride Level 117H, Carbon Dioxide Level 22, Anion Gap 10, Blood Urea Nitrogen 63H, Creatinine 1.4H, Estimat Glomerular Filtration Rate 46.5, Glucose Level 162H, Calcium Level 8.1L, Vancomycin Level Trough 11.9 05/15/18 08:00: White Blood Count [Pending], Red Blood Count [Pending], Hemoglobin [Pending], Hematocrit [Pending], Mean Corpuscular Volume [Pending], Mean Corpuscular Hemoglobin [Pending], Mean Corpuscular Hemoglobin Concent [Pending], Red Cell Distribution Width [Pending], Platelet Count [Pending], Mean Platelet Volume [ Pending], Neutrophils (%) (Auto) [Pending], Lymphocytes (%) (Auto) [Pending], Monocytes (%) (Auto) [Pending], Eosinophils (%) (Auto) [Pending], Basophils (%) (Auto) [Pending], Sodium Level [Pending], Potassium Level [Pending], Chloride Level [Pending], Carbon Dioxide Level [Pending], Blood Urea Nitrogen [Pending], Creatinine [Pending], Estimat Glomerular Filtration Rate [Pending], Glucose Level [Pending], Calcium Level [Pending] Height (Feet): 5 Height (Inches): 7.00 Weight (Pounds): 200 Objective GENERAL: An ill-appearing female, withdrawn HEENT: Fairly negative. NECK: Supple. Tracheostomy is in midline. LUNGS: With reduced air entry specifically in the right lung. CARDIAC: S1 and S2. tachy ABDOMEN: Soft and nontender. EXTREMITIES: No cyanosis or clubbing. Ankit Bell MD May 15, 2018 08:34
[2018-05-15] MEDS: Aspirin Baby 81mg ORAL SCH (09:08)
[2018-05-15] MEDS: Docusate 100mg/10ml Liq GT SCH (09:08)
[2018-05-15] MEDS: Metoprolol Succinate XL 50mg tab ORAL SCH ×2 (09:09→20:37)
[2018-05-15] MEDS: levETIRAcetam 500mg/5ml Liquid NG SCH ×2 (09:09→20:36)
[2018-05-15] MEDS: Phenytoin Susp 100mg/4ml NG SCH ×2 (09:09→20:38)
[2018-05-15 09:20] LABS: ANION GAP 12 mmol/L (5-15); BLOOD UREA NITROGEN 52 mg/dL (7-18); CARBON DIOXIDE 21 MMOL/L (21-32); CHLORIDE 115 MMOL/L (98-107); CREATININE 1.2 MG/DL (0.55-1.30); POTASSIUM 3.2 MMOL/L (3.5-5.1); SODIUM 148 MMOL/L (136-145)
[2018-05-15] MEDS: Vancomycin 1250mg/D5W 250ml IVPB SCH (11:40)
[2018-05-15 12:00] VITALS: BP 133/65
--- NOTE | 2018-05-15 12:01 | Infectious Diseases Prog Note ---
Assessment/Plan Assessment/Plan antibiotics : vancomycin iv, zosyn A 1. pneumonia 2. pleural effusion 3. respiratory failure 4. renal failure improving 5. leucocytosis improving 6. hypertension 7. seizures P 1. continue vancomycin iv, zosyn 2. will follow up cultures Subjective ROS Limited/Unobtainable: Yes Allergies: Coded Allergies: No Known Allergies (Unverified , 04/03/17) Objective Vital Signs Last 24 Hour Vital Signs Date Time Temp Pulse Resp B/P (MAP) Pulse Ox O2 Delivery O2 Flow Rate FiO2 05/15/18 11:01 124 23 40 05/15/18 09:37 128 26 40 05/15/18 09:09 130 118/72 05/15/18 08:00 Mechanical Ventilator 05/15/18 08:00 98.2 130 22 118/72 (87) 100 98.2 05/15/18 08:00 40 05/15/18 07:50 125 18 100 Mechanical Ventilator 40 05/15/18 07:47 129 31 100 Mechanical Ventilator 40 05/15/18 07:42 127 23 40 05/15/18 07:38 128 05/15/18 04:31 117 26 40 05/15/18 04:00 98.8 115 22 128/78 (95) 98 98.8 05/15/18 04:00 Mechanical Ventilator 05/15/18 04:00 40 05/15/18 04:00 113 05/15/18 03:29 119 21 40 05/15/18 00:56 121 20 100 Mechanical Ventilator 40 05/15/18 00:46 125 24 40 05/15/18 00:46 125 23 100 Mechanical Ventilator 40 05/15/18 00:00 Mechanical Ventilator 05/15/18 00:00 98.6 122 21 125/68 (87) 100 98.6 05/15/18 00:00 132 05/14/18 23:06 134 20 40 05/14/18 22:58 99.8 05/14/18 22:28 103.3 05/14/18 21:11 133 21 40 05/14/18 20:00 40 05/14/18 20:00 103.3 136 25 151/73 (99) 98 103.3 05/14/18 20:00 Mechanical Ventilator 05/14/18 20:00 131 05/14/18 19:33 138 26 100 40 05/14/18 19:33 Mechanical Ventilator 05/14/18 19:30 138 27 40 05/14/18 16:52 129 22 50 05/14/18 16:00 98.4 136 24 119/71 (87) 98 98.4 05/14/18 16:00 50 05/14/18 16:00 Mechanical Ventilator 05/14/18 16:00 138 05/14/18 14:54 138 28 50 05/14/18 13:19 131 98 50 05/14/18 13:19 131 24 50 05/14/18 13:19 131 24 100 Mechanical Ventilator 05/14/18 12:30 115 131/64 05/14/18 12:20 50 05/14/18 12:00 Mechanical Ventilator 05/14/18 12:00 121 05/14/18 12:00 97.7 115 12 131/64 (86) 100 97.7 Height (Feet): 5 Height (Inches): 7.00 Weight (Pounds): 200 HEENT: status post trach Respiratory/Chest: lungs clear Cardiovascular: normal rate, regular rhythm, no gallop/murmur Abdomen: other - GT Extremities: no edema Microbiology Date/Time Source Procedure Growth Status 05/12/18 12:35 Blood Blood Culture - Preliminary NO GROWTH AFTER 48 HOURS Resulted 05/12/18 12:30 Blood Blood Culture - Preliminary NO GROWTH AFTER 48 HOURS Resulted 05/12/18 12:45 Nasal Nares MRSA Culture - Final NO METHICILLIN RESISTANT STAPH AUREUS... Complete 05/12/18 12:35 Urine,Clean Catch Urine Culture - Final NO GROWTH AFTER 48 HOURS Complete 05/12/18 12:45 Rectum - Final NO CARBAPENEM-RESISTANT ENTEROBACTERI... Complete Laboratory Tests Test 05/15/18 08:00 White Blood Count 18.0 K/UL (4.8-10.8) H Red Blood Count 2.85 M/UL (4.20-5.40) L Hemoglobin 8.0 G/DL (12.0-16.0) L Hematocrit 24.7 % (37.0-47.0) L Mean Corpuscular Volume 87 FL (80-99) Mean Corpuscular Hemoglobin 28.1 PG (27.0-31.0) Mean Corpuscular Hemoglobin Concent 32.4 G/DL (32.0-36.0) Red Cell Distribution Width 15.2 % (11.6-14.8) H Platelet Count 396 K/UL (150-450) Mean Platelet Volume 6.2 FL (6.5-10.1) L Neutrophils (%) (Auto) % (45.0-75.0) Lymphocytes (%) (Auto) % (20.0-45.0) Monocytes (%) (Auto) % (1.0-10.0) Eosinophils (%) (Auto) % (0.0-3.0) Basophils (%) (Auto) % (0.0-2.0) Differential Total Cells Counted 100 Neutrophils % (Manual) 86 % (45-75) H Lymphocytes % (Manual) 6 % (20-45) L Monocytes % (Manual) 7 % (1-10) Eosinophils % (Manual) 0 % (0-3) Basophils % (Manual) 0 % (0-2) Band Neutrophils 1 % (0-8) Platelet Estimate Increased H Platelet Morphology Normal Hypochromasia 2+ Anisocytosis 1+ Sodium Level 148 MMOL/L (136-145) H Potassium Level 3.2 MMOL/L (3.5-5.1) L Chloride Level 115 MMOL/L (98-107) H Carbon Dioxide Level 21 MMOL/L (21-32) Anion Gap 12 mmol/L (5-15) Blood Urea Nitrogen 52 mg/dL (7-18) H Creatinine 1.2 MG/DL (0.55-1.30) Estimat Glomerular Filtration Rate 55.6 mL/min (>60) Glucose Level 131 MG/DL (74-106) H Calcium Level 8.0 MG/DL (8.5-10.1) L Current Medications Medications (Trade) Dose Ordered Sig/Mario Route PRN Reason Start Time Stop Time Status Last Admin Dose Admin Acetaminophen (Tylenol) 650 mg Q4H PRN GT Mild Pain/Temp > 100.5 05/12/18 18:15 06/11/18 18:14 05/14/18 22:28 Aspirin (ASA) 81 mg DAILY ORAL 05/13/18 09:00 06/12/18 08:59 05/15/18 09:08 Docusate Sodium (Colace) 250 mg DAILY GT 05/13/18 09:00 06/12/18 08:59 05/15/18 09:08 Levalbuterol HCl (Xopenex) 1.25 mg Q6HRT HHN 05/13/18 01:00 05/18/18 00:59 05/15/18 07:50 Levetiracetam (Keppra) 1,500 mg Q12HR NG 05/12/18 21:00 06/11/18 20:59 05/15/18 09:09 Lorazepam (Ativan 2mg/ml 1ml) 1 mg EVERY 6 HOURS PRN IV For Anxiety 05/13/18 00:15 05/20/18 00:14 05/15/18 00:49 Lorazepam (Ativan 2mg/ml 1ml) 2 mg Q2H PRN IV For Seizures 05/12/18 18:15 05/19/18 18:14 Metoprolol Succinate (Toprol XL) 50 mg Q12HR ORAL 05/15/18 09:00 06/14/18 08:59 05/15/18 09:09 Multivitamins (Multivitamins) 1 tab DAILY ORAL 05/13/18 09:00 06/12/18 08:59 05/15/18 09:08 Phenytoin (Dilantin) 175 mg EVERY 12 HOURS NG 05/12/18 21:00 06/11/18 20:59 05/15/18 09:09 Piperacillin Sod/ Tazobactam Sod 3.375 gm/Dextrose 110 ml @ 27.5 mls/hr Q8HR IVPB 05/12/18 22:00 05/19/18 21:59 05/15/18 06:01 Sennosides (Senokot) 2 tab BEDTIME ORAL 05/12/18 21:00 06/11/18 20:59 05/14/18 22:27 Sodium Chloride 1,000 ml @ 75 mls/hr [id number] IV 05/14/18 19:30 06/13/18 19:29 05/15/18 11:41 Vancomycin HCl (Vanco rx to dose) 1 ea DAILY PRN MISC Per rx protocol 05/12/18 18:45 06/11/18 18:44 Vancomycin HCl/ Dextrose 250 ml @ 166.667 mls/hr Q24H IVPB 05/15/18 09:00 05/20/18 08:59 05/15/18 11:40 JORDANA DINH May 15, 2018 12:01
[2018-05-15 16:00] VITALS: BP 137/70
--- NOTE | 2018-05-15 19:11 | Cardiology Progress Note ---
Assessment/Plan Assessment/Plan The patient is seen and examined, full consult note will be dictated. Objective Last 24 Hour Vital Signs Date Time Temp Pulse Resp B/P (MAP) Pulse Ox O2 Delivery O2 Flow Rate FiO2 05/15/18 17:14 140 31 40 05/15/18 16:00 40 05/15/18 16:00 Mechanical Ventilator 05/15/18 16:00 122 05/15/18 16:00 98.1 133 22 137/70 (92) 98 98.1 05/15/18 15:37 131 33 40 05/15/18 13:23 124 18 100 Mechanical Ventilator 40 05/15/18 13:17 124 24 100 Mechanical Ventilator 40 05/15/18 13:15 127 24 40 05/15/18 12:05 123 05/15/18 12:00 40 05/15/18 12:00 Mechanical Ventilator 05/15/18 12:00 98.6 129 21 133/65 (87) 100 98.6 05/15/18 11:01 124 23 40 05/15/18 09:37 128 26 40 05/15/18 09:09 130 118/72 05/15/18 08:00 Mechanical Ventilator 05/15/18 08:00 98.2 130 22 118/72 (87) 100 98.2 05/15/18 08:00 40 05/15/18 07:50 125 18 100 Mechanical Ventilator 40 05/15/18 07:47 129 31 100 Mechanical Ventilator 40 05/15/18 07:42 127 23 40 05/15/18 07:38 128 05/15/18 04:31 117 26 40 05/15/18 04:00 98.8 115 22 128/78 (95) 98 98.8 05/15/18 04:00 Mechanical Ventilator 05/15/18 04:00 40 05/15/18 04:00 113 05/15/18 03:29 119 21 40 05/15/18 00:56 121 20 100 Mechanical Ventilator 40 05/15/18 00:46 125 24 40 05/15/18 00:46 125 23 100 Mechanical Ventilator 40 05/15/18 00:00 Mechanical Ventilator 05/15/18 00:00 98.6 122 21 125/68 (87) 100 98.6 05/15/18 00:00 132 05/14/18 23:06 134 20 40 05/14/18 22:58 99.8 7/11/18 22:28 103.3 05/14/18 21:11 133 21 40 05/14/18 20:00 40 05/14/18 20:00 103.3 136 25 151/73 (99) 98 103.3 05/14/18 20:00 Mechanical Ventilator 05/14/18 20:00 131 05/14/18 19:33 138 26 100 40 05/14/18 19:33 Mechanical Ventilator 05/14/18 19:30 138 27 40 Intake and Output 05/14/18 05/15/18 19:00 07:00 Intake Total 1622.000 ml 1296.5 ml Output Total 200 ml 350 ml Balance 1422.000 ml 946.5 ml Intake Free Water 80 ml 100 ml IV Total 1182.000 ml 866.5 ml Tube Feeding 360 ml 330 ml Output Urine Total 200 ml 350 ml # Voids 2 Laboratory Tests Test 05/15/18 08:00 White Blood Count 18.0 K/UL (4.8-10.8) H Red Blood Count 2.85 M/UL (4.20-5.40) L Hemoglobin 8.0 G/DL (12.0-16.0) L Hematocrit 24.7 % (37.0-47.0) L Mean Corpuscular Volume 87 FL (80-99) Mean Corpuscular Hemoglobin 28.1 PG (27.0-31.0) Mean Corpuscular Hemoglobin Concent 32.4 G/DL (32.0-36.0) Red Cell Distribution Width 15.2 % (11.6-14.8) H Platelet Count 396 K/UL (150-450) Mean Platelet Volume 6.2 FL (6.5-10.1) L Neutrophils (%) (Auto) % (45.0-75.0) Lymphocytes (%) (Auto) % (20.0-45.0) Monocytes (%) (Auto) % (1.0-10.0) Eosinophils (%) (Auto) % (0.0-3.0) Basophils (%) (Auto) % (0.0-2.0) Differential Total Cells Counted 100 Neutrophils % (Manual) 86 % (45-75) H Lymphocytes % (Manual) 6 % (20-45) L Monocytes % (Manual) 7 % (1-10) Eosinophils % (Manual) 0 % (0-3) Basophils % (Manual) 0 % (0-2) Band Neutrophils 1 % (0-8) Platelet Estimate Increased H Platelet Morphology Normal Hypochromasia 2+ Anisocytosis 1+ Sodium Level 148 MMOL/L (136-145) H Potassium Level 3.2 MMOL/L (3.5-5.1) L Chloride Level 115 MMOL/L (98-107) H Carbon Dioxide Level 21 MMOL/L (21-32) Anion Gap 12 mmol/L (5-15) Blood Urea Nitrogen 52 mg/dL (7-18) H Creatinine 1.2 MG/DL (0.55-1.30) Estimat Glomerular Filtration Rate 55.6 mL/min (>60) Glucose Level 131 MG/DL (74-106) H Calcium Level 8.0 MG/DL (8.5-10.1) L Microbiology Date/Time Source Procedure Growth Status 05/13/18 16:30 Sputum Gram Stain - Final Resulted 05/13/18 16:30 Sputum Sputum Culture Pending Resulted Kehinde Kendrick MD May 15, 2018 19:11
[2018-05-15 20:00] VITALS: BP 134/92
[2018-05-15] MEDS: Sennosides 8.6mg ORAL SCH (20:36)
[2018-05-15] MEDS: D5W w/KCl 20mEq 1,000 ML IV SCH (20:36)
[2018-05-15] MEDS: Miralax 17gm pkt GT SCH (20:36)
[2018-05-16] VITALS: BP 143/80
[2018-05-16] MEDS: Levalbuterol Inh UD 1.25mg/0.5ml HHN SCH ×4 (01:00→20:00)
--- NOTE | 2018-05-16 01:02 | Consultation ---
DATE OF CONSULTATION: 05/15/2018 CARDIOLOGY CONSULTATION CONSULTING PHYSICIAN: Kehinde Kendrick M.D. REFERRING PHYSICIAN: Ankit Bell M.D. REASON FOR CONSULTATION: Management of tachycardia. HISTORY OF PRESENT ILLNESS: The patient is a very unfortunate 58-year-old female, who presents to the hospital from nursing facility with hypertension and shortness of breath for about a day. The patient on arrival to the emergency department had a heart rate of 140. She was hypotensive with blood pressure of 56/31 mmHg. Chest x-ray showed complete whiteout of the right lung due to a large pleural effusion. The patient was admitted to [facility] for evaluation and management. Of note, the patient has DNR order in the chart. She is nonverbal and not capable of providing any history. Cardiology consultation was made at the request of Dr. Bell for management of tachycardia and hypertension. PAST MEDICAL HISTORY: 1. History of hypertension. 2. History of seizure disorder. 3. History of respiratory failure, status post tracheostomy tube placement. 4. History of seizure disorder. 5. Dysphagia, status post PEG placement. PAST SURGICAL HISTORY: 1. Status post tracheostomy tube placement. 2. Status post gastrostomy tube placement. MEDICATIONS: List of medications, phenytoin 7 mL G-tube q.12 hours, multivitamin 5 mL G-tube daily, mineral oil 133 mL rectal as needed for constipation, metoprolol 100 mg G-tube q.12 hours, Keppra 15 mL G-tube twice daily, Atrovent 0.5 mg q.6 h. as needed for bronchospasm, diazepam 2 mg G-tube twice daily, folic acid 800 mcg G-tube daily, 17.2 mg G-tube at bedtime, 1.5 mg q.32 hours, chlorhexidine gluconate 15 mL mucous membrane daily, and Pepcid 20 mg G-tube twice daily. SOCIAL HISTORY: There is no current history of tobacco, alcohol, or illicit drug use. FAMILY HISTORY: No premature coronary artery disease in the first-degree relatives. REVIEW OF SYSTEMS: The patient is nonverbal, so system review cannot be obtained. PHYSICAL EXAMINATION: VITAL SIGNS: Blood pressure at the time of arrival to the hospital 56/31 mmHg, respirations of 30, pulse of 140, pulse oximetry of 100% on mechanical ventilator, and temperature 99.0 degrees Fahrenheit. GENERAL: The patient is a very unfortunate 58-year-old female, in [id number] respiratory distress. Awake, not communicating, no tracking eye contact, on the ventilator. HEENT: Atraumatic and normocephalic. Bitemporal wasting. Pupils are equal, round, and reactive to light and accommodation. NECK: JVP cannot be assessed due to positive inspiratory pressure. There is presence of tracheostomy tube. No carotid bruit. CARDIOVASCULAR: Normal S1 and S2. Regular rate and rhythm. Tachycardic. No murmurs, gallops, or rubs. LUNGS: Diminished breath sounds in the right lung. Positive dullness on percussion on the right lung. ABDOMEN: Soft, nontender, and nondistended. Presence of a G-tube. EXTREMITIES: No evidence of edema, clubbing, or cyanosis. LABORATORY FINDINGS: WBC was 36.0, hemoglobin was 12.5, hematocrit of 40.6%, and platelet count of 745,000. Sodium 142, potassium is 5.1, chloride 105, bicarbonate 26, BUN of 69, creatinine 2.1, glucose 151, and calcium is 8.5. Troponin I is 0. ProBNP was 1332. ASSESSMENT AND PLAN: The patient is a very unfortunate 58-year-old female, seen in Cardiology consultation at the request of Dr. Bell. 1. Hypertension. This patient requires normal saline intravenous fluid. There could be some element of sepsis, given the patient's fever. I doubt that there is any evidence of tension pneumothorax, although venous return could be deteriorated in the presence of increasing thoracic pressure. We will obtain 2D echocardiography to assess left ventricular systolic function. Hemodynamics also be assessed by obtaining diastolic data. 2. Sinus tachycardia currently at the rate of 140, not responding to metoprolol, obviously due to hypoxemia. The patient is currently in mild to moderate respiratory distress possibly due to right lung whiteout. Discussed with Dr. Bell regarding right thoracentesis. 3. Ventilatory-drive respiratory failure. 4. History of dysphagia, status post PEG placement. 5. History of seizure disorder. 6. History of hypertension. Currently, all the blood pressure medications on hold. I would like to thank, Dr. Bell, for allowing me to participate in the care of this patient. Kehinde Kendrick M.D. DR: KASSIDY JOB#: [id number] CC:
[2018-05-16 04:00] VITALS: BP 124/83
[2018-05-16 05:07] LABS: HEMATOCRIT 26.9 % (37.0-47.0); HEMOGLOBIN 8.4 G/DL (12.0-16.0); MEAN CORPUSCULAR VOLUME 88 FL (80-99); PLATELET COUNT 413 K/UL (150-450); RED BLOOD COUNT 3.07 M/UL (4.20-5.40); RED CELL DISTRIBUTION WIDTH 15.7 % (11.6-14.8); WHITE BLOOD COUNT 20.1 K/UL (4.8-10.8)
[2018-05-16 05:46] LABS: ANION GAP 13 mmol/L (5-15); BLOOD UREA NITROGEN 45 mg/dL (7-18); CALCIUM 8.4 MG/DL (8.5-10.1); CARBON DIOXIDE 21 MMOL/L (21-32); CHLORIDE 111 MMOL/L (98-107); CREATININE 1.2 MG/DL (0.55-1.30); POTASSIUM 3.5 MMOL/L (3.5-5.1); SODIUM 144 MMOL/L (136-145)
[2018-05-16] MEDS: Piperacillin/Tazobactam 3.375 GM in D5W 110 ML IVPB SCH ×3 (05:49→22:14)
[2018-05-16 08:00] VITALS: BP 129/90
[2018-05-16] MEDS: Metoprolol Succinate XL 50mg tab ORAL SCH ×2 (08:37→22:14)
[2018-05-16] MEDS: Aspirin Baby 81mg ORAL SCH (08:37)
[2018-05-16] MEDS: levETIRAcetam 500mg/5ml Liquid NG SCH ×2 (08:38→22:15)
[2018-05-16] MEDS: Phenytoin Susp 100mg/4ml NG SCH ×2 (08:38→22:13)
[2018-05-16] MEDS: Docusate 100mg/10ml Liq GT SCH (08:38)
[2018-05-16] MEDS: Vancomycin 1250mg/D5W 250ml IVPB SCH (08:38)
[2018-05-16] MEDS: D5W w/KCl 20mEq 1,000 ML IV SCH ×2 (09:30→22:14)
--- NOTE | 2018-05-16 11:35 | General Progress Note ---
Assessment/Plan Assessment/Plan IMPRESSION: 1. Large right pleural effusion. 2. Respiratory failure. 3. Tracheostomy. 4. Acute on chronic renal failure. 5. Lactic acidemia. 6. Leukocytosis. 7. Possible sepsis. 8. Severe protein-calorie malnutrition. 9. tachycardia PLAN tap as patient is more stable hydration with improved renal function increase beta brianna renal and ID noted follow up labs wbc still elevated and renal function poor monitor hemodynamics t/f zuniga once stable DNR Subjective Allergies: Coded Allergies: No Known Allergies (Unverified , 04/03/17) Subjective NPO poor LOC DNR Objective Last 24 Hour Vital Signs Date Time Temp Pulse Resp B/P (MAP) Pulse Ox O2 Delivery O2 Flow Rate FiO2 05/16/18 10:15 105 26 40 05/16/18 09:45 122 05/16/18 08:37 122 129/90 05/16/18 08:00 99.2 122 29 129/90 (103) 100 99.2 05/16/18 08:00 40 05/16/18 08:00 Mechanical Ventilator 05/16/18 06:40 120 30 40 05/16/18 06:40 Mechanical Ventilator 40 05/16/18 06:40 Mechanical Ventilator 40 05/16/18 05:16 124 27 40 05/16/18 04:00 99.1 132 53 124/83 (97) 99 99.1 05/16/18 04:00 40 05/16/18 04:00 Mechanical Ventilator 05/16/18 03:33 133 05/16/18 03:21 64 36 40 05/16/18 02:16 Mechanical Ventilator 40 05/16/18 02:16 Mechanical Ventilator 40 05/16/18 01:27 67 22 40 05/16/18 00:00 100.4 135 47 143/80 (101) 97 100.4 05/16/18 00:00 Mechanical Ventilator 05/15/18 23:35 130 05/15/18 23:17 60 21 40 05/15/18 21:03 142 38 40 05/15/18 20:37 139 134/92 05/15/18 20:00 100.2 139 35 134/92 (106) 90 100.2 05/15/18 20:00 148 05/15/18 20:00 40 05/15/18 20:00 Mechanical Ventilator 05/15/18 19:09 146 45 100 Mechanical Ventilator 40 05/15/18 19:09 Mechanical Ventilator 40 05/15/18 19:09 146 41 40 05/15/18 17:14 140 31 40 05/15/18 16:00 40 05/15/18 16:00 Mechanical Ventilator 05/15/18 16:00 122 05/15/18 16:00 98.1 133 22 137/70 (92) 98 98.1 05/15/18 15:37 131 33 40 05/15/18 13:23 124 18 100 Mechanical Ventilator 40 05/15/18 13:17 124 24 100 Mechanical Ventilator 40 05/15/18 13:15 127 24 40 05/15/18 12:05 123 05/15/18 12:00 40 05/15/18 12:00 Mechanical Ventilator 05/15/18 12:00 98.6 129 21 133/65 (87) 100 98.6 Intake and Output 05/15/18 05/16/18 19:00 07:00 Intake Total 1082.500 ml 1427.56 ml Output Total 1000 ml 525 ml Balance 82.500 ml 902.56 ml Intake Free Water 80 ml IV Total 462.500 ml 922.56 ml Tube Feeding 560 ml 425 ml Other 60 ml Output Urine Total 1000 ml 525 ml # Bowel Movements 2 Laboratory Tests 05/16/18 04:05: White Blood Count 20.1H, Red Blood Count 3.07L, Hemoglobin 8.4L, Hematocrit 26.9L, Mean Corpuscular Volume 88, Mean Corpuscular Hemoglobin 27.2, Mean Corpuscular Hemoglobin Concent 31.1L, Red Cell Distribution Width 15.7H, Platelet Count 413, Mean Platelet Volume 6.5, Neutrophils (%) (Auto) , Lymphocytes (%) (Auto) , Monocytes (%) (Auto) , Eosinophils (%) (Auto) , Basophils (%) (Auto) , Differential Total Cells Counted 100, Neutrophils % ( Manual) 80H, Lymphocytes % (Manual) 10L, Monocytes % (Manual) 10, Eosinophils % (Manual) 0, Basophils % (Manual) 0, Band Neutrophils 0, Platelet Estimate Adequate, Platelet Morphology Normal, Hypochromasia 1+, Anisocytosis 1+, Target Cells 1+, Tear Drop Cells 1+, Sodium Level 144, Potassium Level 3.5, Chloride Level 111H, Carbon Dioxide Level 21, Anion Gap 13, Blood Urea Nitrogen 45H, Creatinine 1.2, Estimat Glomerular Filtration Rate 55.6, Glucose Level 188H, Calcium Level 8.4L Height (Feet): 5 Height (Inches): 7.00 Weight (Pounds): 200 Objective GENERAL: An ill-appearing female, withdrawn HEENT: Fairly negative. NECK: Supple. Tracheostomy is in midline. LUNGS: With reduced air entry specifically in the right lung. CARDIAC: S1 and S2. tachy ABDOMEN: Soft and nontender. EXTREMITIES: No cyanosis or clubbing. Ankit Bell MD May 16, 2018 11:35
[2018-05-16 12:00] VITALS: BP 137/79
[2018-05-16] MEDS ORDERED: Lidocaine 1% Plain 30 ml INJ ONE (13:00)
--- NOTE | 2018-05-16 13:02 | Cardiology Progress Note ---
Assessment/Plan Assessment/Plan 1. Hypotension, resolved, continue hydration. 2. Sinus tachycardia, better, s/p right thoracentesis, removing 400 cc. Continue B-blockers. 3. Ventilatory-drive respiratory failure. 4. History of dysphagia, status post PEG placement. 5. History of seizure disorder. 6. History of hypertension. Currently, all the blood pressure medications on hold. Subjective Subjective Sinus tachycardia at 110. Objective Last 24 Hour Vital Signs Date Time Temp Pulse Resp B/P (MAP) Pulse Ox O2 Delivery O2 Flow Rate FiO2 05/16/18 12:00 Mechanical Ventilator 05/16/18 12:00 98.8 110 25 137/79 (98) 99 98.8 05/16/18 12:00 40 05/16/18 10:30 101 28 40 05/16/18 10:15 105 26 40 05/16/18 09:45 122 05/16/18 08:37 122 129/90 05/16/18 08:00 99.2 122 29 129/90 (103) 100 99.2 05/16/18 08:00 40 05/16/18 08:00 Mechanical Ventilator 05/16/18 06:40 120 30 40 05/16/18 06:40 Mechanical Ventilator 40 05/16/18 06:40 Mechanical Ventilator 40 05/16/18 05:16 124 27 40 05/16/18 04:00 99.1 132 53 124/83 (97) 99 99.1 05/16/18 04:00 40 05/16/18 04:00 Mechanical Ventilator 05/16/18 03:33 133 05/16/18 03:21 64 36 40 05/16/18 02:16 Mechanical Ventilator 40 05/16/18 02:16 Mechanical Ventilator 40 05/16/18 01:27 67 22 40 05/16/18 00:00 100.4 135 47 143/80 (101) 97 100.4 05/16/18 00:00 Mechanical Ventilator 05/15/18 23:35 130 05/15/18 23:17 60 21 40 05/15/18 21:03 142 38 40 05/15/18 20:37 139 134/92 05/15/18 20:00 100.2 139 35 134/92 (106) 90 100.2 05/15/18 20:00 148 05/15/18 20:00 40 05/15/18 20:00 Mechanical Ventilator 05/15/18 19:09 146 45 100 Mechanical Ventilator 40 05/15/18 19:09 Mechanical Ventilator 40 05/15/18 19:09 146 41 40 05/15/18 17:14 140 31 40 05/15/18 16:00 40 05/15/18 16:00 Mechanical Ventilator 05/15/18 16:00 122 05/15/18 16:00 98.1 133 22 137/70 (92) 98 98.1 05/15/18 15:37 131 33 40 05/15/18 13:23 124 18 100 Mechanical Ventilator 40 05/15/18 13:17 124 24 100 Mechanical Ventilator 40 05/15/18 13:15 127 24 40 Intake and Output 05/15/18 05/16/18 18:59 06:59 Intake Total 1165.000 ml 1385.06 ml Output Total 1000 ml 525 ml Balance 165.000 ml 860.06 ml Intake Free Water 80 ml IV Total 565.000 ml 820.06 ml Tube Feeding 540 ml 485 ml Other 60 ml Output Urine Total 1000 ml 525 ml # Bowel Movements 2 Laboratory Tests Test 05/16/18 04:05 White Blood Count 20.1 K/UL (4.8-10.8) H Red Blood Count 3.07 M/UL (4.20-5.40) L Hemoglobin 8.4 G/DL (12.0-16.0) L Hematocrit 26.9 % (37.0-47.0) L Mean Corpuscular Volume 88 FL (80-99) Mean Corpuscular Hemoglobin 27.2 PG (27.0-31.0) Mean Corpuscular Hemoglobin Concent 31.1 G/DL (32.0-36.0) L Red Cell Distribution Width 15.7 % (11.6-14.8) H Platelet Count 413 K/UL (150-450) Mean Platelet Volume 6.5 FL (6.5-10.1) Neutrophils (%) (Auto) % (45.0-75.0) Lymphocytes (%) (Auto) % (20.0-45.0) Monocytes (%) (Auto) % (1.0-10.0) Eosinophils (%) (Auto) % (0.0-3.0) Basophils (%) (Auto) % (0.0-2.0) Differential Total Cells Counted 100 Neutrophils % (Manual) 80 % (45-75) H Lymphocytes % (Manual) 10 % (20-45) L Monocytes % (Manual) 10 % (1-10) Eosinophils % (Manual) 0 % (0-3) Basophils % (Manual) 0 % (0-2) Band Neutrophils 0 % (0-8) Platelet Estimate Adequate Platelet Morphology Normal Hypochromasia 1+ Anisocytosis 1+ Target Cells 1+ Tear Drop Cells 1+ Sodium Level 144 MMOL/L (136-145) Potassium Level 3.5 MMOL/L (3.5-5.1) Chloride Level 111 MMOL/L (98-107) H Carbon Dioxide Level 21 MMOL/L (21-32) Anion Gap 13 mmol/L (5-15) Blood Urea Nitrogen 45 mg/dL (7-18) H Creatinine 1.2 MG/DL (0.55-1.30) Estimat Glomerular Filtration Rate 55.6 mL/min (>60) Glucose Level 188 MG/DL (74-106) H Calcium Level 8.4 MG/DL (8.5-10.1) L Microbiology Date/Time Source Procedure Growth Status 05/13/18 16:30 Sputum Gram Stain - Final Resulted 05/13/18 16:30 Sputum Culture - Preliminary Gram Negative [place] Resulted Objective HEENT: Atraumatic and normocephalic. Bitemporal wasting. Pupils are equal, round, and reactive to light and accommodation. NECK: JVP cannot be assessed due to positive inspiratory pressure. There is presence of tracheostomy tube. No carotid bruit. CARDIOVASCULAR: Normal S1 and S2. Regular rate and rhythm. Tachycardic. No murmurs, gallops, or rubs. LUNGS: Diminished breath sounds in the right lung. Positive dullness on percussion on the right lung. ABDOMEN: Soft, nontender, and nondistended. Presence of a G-tube. EXTREMITIES: No evidence of edema, clubbing, or cyanosis. Kehinde Kendrick MD May 16, 2018 13:02
--- NOTE | 2018-05-16 13:36 | Infectious Diseases Prog Note ---
Assessment/Plan Assessment/Plan A 1. pneumonia 2. pleural effusion 3. Ventilator dependent respiratory failure 4. renal failure improving 5. leucocytosis 6. hypertension 7. seizures P 1. continue vancomycin iv, Zosyn 2. Pleural fluid cultures Subjective ROS Limited/Unobtainable: Yes Constitutional: Reports: fatigue, other - T rjm=044.4 Allergies: Coded Allergies: No Known Allergies (Unverified , 04/03/17) Objective Vital Signs Last 24 Hour Vital Signs Date Time Temp Pulse Resp B/P (MAP) Pulse Ox O2 Delivery O2 Flow Rate FiO2 05/16/18 13:09 120 29 100 Mechanical Ventilator 40 05/16/18 13:05 120 29 40 05/16/18 13:05 120 29 100 Mechanical Ventilator 40 05/16/18 12:00 Mechanical Ventilator 05/16/18 12:00 98.8 110 25 137/79 (98) 99 98.8 05/16/18 12:00 40 05/16/18 10:30 101 28 40 05/16/18 10:15 105 26 40 05/16/18 09:45 122 05/16/18 08:37 122 129/90 05/16/18 08:00 99.2 122 29 129/90 (103) 100 99.2 05/16/18 08:00 40 05/16/18 08:00 Mechanical Ventilator 05/16/18 06:40 120 30 40 05/16/18 06:40 Mechanical Ventilator 40 05/16/18 06:40 Mechanical Ventilator 40 05/16/18 05:16 124 27 40 05/16/18 04:00 99.1 132 53 124/83 (97) 99 99.1 05/16/18 04:00 40 05/16/18 04:00 Mechanical Ventilator 05/16/18 03:33 133 05/16/18 03:21 64 36 40 05/16/18 02:16 Mechanical Ventilator 40 05/16/18 02:16 Mechanical Ventilator 40 05/16/18 01:27 67 22 40 05/16/18 00:00 100.4 135 47 143/80 (101) 97 100.4 05/16/18 00:00 Mechanical Ventilator 05/15/18 23:35 130 05/15/18 23:17 60 21 40 05/15/18 21:03 142 38 40 05/15/18 20:37 139 134/92 05/15/18 20:00 100.2 139 35 134/92 (106) 90 100.2 05/15/18 20:00 148 05/15/18 20:00 40 05/15/18 20:00 Mechanical Ventilator 05/15/18 19:09 146 45 100 Mechanical Ventilator 40 05/15/18 19:09 Mechanical Ventilator 40 05/15/18 19:09 146 41 40 05/15/18 17:14 140 31 40 05/15/18 16:00 40 05/15/18 16:00 Mechanical Ventilator 05/15/18 16:00 122 05/15/18 16:00 98.1 133 22 137/70 (92) 98 98.1 05/15/18 15:37 131 33 40 Height (Feet): 5 Height (Inches): 7.00 Weight (Pounds): 200 HEENT: status post trach Respiratory/Chest: decreased breath sounds, other - on ventilator Cardiovascular: tachycardia Abdomen: soft, non tender, other - GJ tube Extremities: no edema Neurologic/Psychiatric: unresponsiveness Microbiology Date/Time Source Procedure Growth Status 05/13/18 16:30 Sputum Gram Stain - Final Resulted 05/13/18 16:30 Sputum Culture - Preliminary Gram Negative [place] Resulted Laboratory Tests Test 05/16/18 04:05 05/16/18 13:15 White Blood Count 20.1 K/UL (4.8-10.8) H Red Blood Count 3.07 M/UL (4.20-5.40) L Hemoglobin 8.4 G/DL (12.0-16.0) L Hematocrit 26.9 % (37.0-47.0) L Mean Corpuscular Volume 88 FL (80-99) Mean Corpuscular Hemoglobin 27.2 PG (27.0-31.0) Mean Corpuscular Hemoglobin Concent 31.1 G/DL (32.0-36.0) L Red Cell Distribution Width 15.7 % (11.6-14.8) H Platelet Count 413 K/UL (150-450) Mean Platelet Volume 6.5 FL (6.5-10.1) Neutrophils (%) (Auto) % (45.0-75.0) Lymphocytes (%) (Auto) % (20.0-45.0) Monocytes (%) (Auto) % (1.0-10.0) Eosinophils (%) (Auto) % (0.0-3.0) Basophils (%) (Auto) % (0.0-2.0) Differential Total Cells Counted 100 Neutrophils % (Manual) 80 % (45-75) H Lymphocytes % (Manual) 10 % (20-45) L Monocytes % (Manual) 10 % (1-10) Eosinophils % (Manual) 0 % (0-3) Basophils % (Manual) 0 % (0-2) Band Neutrophils 0 % (0-8) Platelet Estimate Adequate Platelet Morphology Normal Hypochromasia 1+ Anisocytosis 1+ Target Cells 1+ Tear Drop Cells 1+ Sodium Level 144 MMOL/L (136-145) Potassium Level 3.5 MMOL/L (3.5-5.1) Chloride Level 111 MMOL/L (98-107) H Carbon Dioxide Level 21 MMOL/L (21-32) Anion Gap 13 mmol/L (5-15) Blood Urea Nitrogen 45 mg/dL (7-18) H Creatinine 1.2 MG/DL (0.55-1.30) Estimat Glomerular Filtration Rate 55.6 mL/min (>60) Glucose Level 188 MG/DL (74-106) H Calcium Level 8.4 MG/DL (8.5-10.1) L Prothrombin Time Pending Prothromb Time International Ratio Pending Activated Partial Thromboplast Time Pending Current Medications Medications (Trade) Dose Ordered Sig/Mario Route PRN Reason Start Time Stop Time Status Last Admin Dose Admin Acetaminophen (Tylenol) 650 mg Q4H PRN GT Mild Pain/Temp > 100.5 05/12/18 18:15 06/11/18 18:14 05/14/18 22:28 Aspirin (ASA) 81 mg DAILY ORAL 05/13/18 09:00 06/12/18 08:59 05/16/18 08:37 Dextrose/ Electrolytes 1,000 ml @ 75 mls/hr [id number] IV 05/15/18 20:00 06/14/18 19:59 05/16/18 09:30 Docusate Sodium (Colace) 250 mg DAILY GT 05/13/18 09:00 06/12/18 08:59 05/16/18 08:38 Levalbuterol HCl (Xopenex) 1.25 mg Q6HRT HHN 05/13/18 01:00 05/18/18 00:59 05/15/18 13:15 Levetiracetam (Keppra) 1,500 mg Q12HR NG 05/12/18 21:00 06/11/18 20:59 05/16/18 08:38 Lorazepam (Ativan 2mg/ml 1ml) 1 mg EVERY 6 HOURS PRN IV For Anxiety 05/13/18 00:15 05/20/18 00:14 05/15/18 00:49 Lorazepam (Ativan 2mg/ml 1ml) 2 mg Q2H PRN IV For Seizures 05/12/18 18:15 05/19/18 18:14 Metoprolol Succinate (Toprol XL) 50 mg Q12HR ORAL 05/15/18 09:00 06/14/18 08:59 05/16/18 08:37 Multivitamins (Multivitamins) 1 tab DAILY ORAL 05/13/18 09:00 06/12/18 08:59 05/16/18 08:37 Phenytoin (Dilantin) 175 mg EVERY 12 HOURS NG 05/12/18 21:00 06/11/18 20:59 05/16/18 08:38 Piperacillin Sod/ Tazobactam Sod 3.375 gm/Dextrose 110 ml @ 27.5 mls/hr Q8HR IVPB 05/12/18 22:00 05/19/18 21:59 05/16/18 05:49 Polyethylene Glycol (Miralax) 17 gm BEDTIME GT 05/15/18 21:00 06/14/18 20:59 05/15/18 20:36 Sennosides (Senokot) 2 tab BEDTIME ORAL 05/12/18 21:00 06/11/18 20:59 05/15/18 20:36 Vancomycin HCl (Vanco rx to dose) 1 ea DAILY PRN MISC Per rx protocol 05/12/18 18:45 06/11/18 18:44 Vancomycin HCl/ Dextrose 250 ml @ 166.667 mls/hr Q24H IVPB 05/15/18 09:00 05/20/18 08:59 05/16/18 08:38 Fei De Leon MD May 16, 2018 13:36
[2018-05-16 13:53] LABS: INR 1.1 (0.9-1.1)
[2018-05-16] MEDS ORDERED: Tubing IV Secondary IV ONE (14:38)
[2018-05-16] MEDS ORDERED: NS 275ml ONE (14:38)
--- NOTE | 2018-05-16 15:24 | Pre-Procedure Note/Attestation ---
Pre-Procedure Note/Attestation Complete Prior to Procedure Planned Procedure: right Procedure Narrative: US guided thoracentesis Indications for Procedure Pre-Operative Diagnosis: pleural effusion Attestation Informed consent obtained by the primary team. This was confirmed prior to the procedure. I attest that I re-evaluated the patient just prior to the surgery and that there has been no change in the patient's H&P, except as documented below: Jose Gant M.D. May 16, 2018 15:24
[2018-05-16 16:00] VITALS: BP 147/72
--- NOTE | 2018-05-16 16:08 | Diagnostic Imaging Report ---
Indications: Large right pleural effusion Technique: Ultrasound used to localize optimal puncture site. Sterile prepping and draping right chest. Sterile ultrasound probe cover and sterile ultrasound gel utilized. Local anesthesia with 1% lidocaine. Under real-time ultrasound guidance, puncture pleural space using thoracentesis needle. Stylet removed. Catheter placed to vacuum bottle suction. Total 400 milliliters of fluid aspirated out of the targeted loculation. Patient tolerated procedure well, without immediate complication. Findings: Followup sonography demonstrates residual complex, loculated pleural fluid. Impression: Large, loculated right pleural effusion. Successful ultrasound-guided thoracentesis, yielding 400 milliliters of fluid. Specimen sent for requested diagnostic studies.
--- NOTE | 2018-05-16 16:10 | Diagnostic Imaging Report ---
Indication: Dyspnea. Status post thoracentesis. Comparison: 05/13/2019 A single view chest radiograph was obtained. FINDINGS/IMPRESSION: Decrease in right-sided pleural effusion status post thoracentesis. Large right-sided pleural effusion remains. This pleural effusion was noted to be loculated on ultrasound images from thoracentesis. There is no pneumothorax. Heart size and mediastinal contours stable. Tracheostomy tube in place.
[2018-05-16 20:00] VITALS: BP 131/49
[2018-05-16] MEDS: Miralax 17gm pkt GT SCH (22:12)
[2018-05-16] MEDS: Sennosides 8.6mg ORAL SCH (22:15)
[2018-05-17] VITALS: BP 121/51
[2018-05-17] MEDS: Levalbuterol Inh UD 1.25mg/0.5ml HHN SCH ×4 (00:19→19:27)
[2018-05-17 04:00] VITALS: BP 126/76
[2018-05-17] MEDS: Piperacillin/Tazobactam 3.375 GM in D5W 110 ML IVPB SCH ×3 (05:37→21:38)
[2018-05-17] MEDS: D5W w/KCl 20mEq 1,000 ML IV SCH ×3 (06:30→20:45)
[2018-05-17 08:00] VITALS: BP 117/51
--- NOTE | 2018-05-17 09:42 | General Progress Note ---
Assessment/Plan Assessment/Plan IMPRESSION: 1. Large right pleural effusion. s/p tap 2. Respiratory failure. 3. Tracheostomy. 4. Acute on chronic renal failure. 5. Lactic acidemia. 6. Leukocytosis. 7. Possible sepsis. 8. Severe protein-calorie malnutrition. 9. tachycardia PLAN hydration with improved renal function ? dc beta brianna renal and ID noted follow up labs for change wbc still elevated but improved monitor hemodynamics t/f zuniga once stable- possibly today DNR Subjective Allergies: Coded Allergies: No Known Allergies (Unverified , 04/03/17) Subjective poor LOC DNR Objective Last 24 Hour Vital Signs Date Time Temp Pulse Resp B/P (MAP) Pulse Ox O2 Delivery O2 Flow Rate FiO2 05/17/18 08:35 95 23 50 05/17/18 07:59 99 21 100 Mechanical Ventilator 40 05/17/18 07:27 99 21 50 05/17/18 07:09 99 22 11 Mechanical Ventilator 40 05/17/18 04:48 99 23 50 05/17/18 04:17 103 05/17/18 04:00 97.3 98 20 126/76 (93) 98 97.3 05/17/18 04:00 40 05/17/18 04:00 Mechanical Ventilator 05/17/18 02:40 118 20 50 05/17/18 01:30 121 21 50 05/17/18 00:29 107 20 100 Mechanical Ventilator 40 05/17/18 00:19 104 23 100 Mechanical Ventilator 40 05/17/18 00:17 104 23 40 05/17/18 00:00 40 05/17/18 00:00 107 05/17/18 00:00 Mechanical Ventilator 05/17/18 00:00 98.1 96 52 121/51 (74) 100 98.1 05/16/18 22:45 107 30 40 05/16/18 22:14 109 131/49 05/16/18 21:16 110 30 40 05/16/18 20:00 113 05/16/18 20:00 98.2 109 35 131/49 (76) 100 98.2 05/16/18 20:00 Mechanical Ventilator 05/16/18 20:00 40 05/16/18 20:00 118 20 100 Mechanical Ventilator 40 05/16/18 20:00 114 20 95 Mechanical Ventilator 40 05/16/18 19:45 121 30 100 Mechanical Ventilator 40 05/16/18 19:45 Mechanical Ventilator 40 05/16/18 19:25 121 30 40 05/16/18 16:45 125 31 40 05/16/18 16:00 Mechanical Ventilator 05/16/18 16:00 122 05/16/18 16:00 40 05/16/18 16:00 98.4 126 28 147/72 (97) 99 98.4 05/16/18 15:00 122 28 40 05/16/18 13:09 120 29 100 Mechanical Ventilator 40 05/16/18 13:05 120 29 40 05/16/18 13:05 120 29 100 Mechanical Ventilator 40 05/16/18 12:00 Mechanical Ventilator 05/16/18 12:00 98.8 110 25 137/79 (98) 99 98.8 05/16/18 12:00 104 05/16/18 12:00 40 05/16/18 10:30 101 28 40 05/16/18 10:15 105 26 40 05/16/18 09:45 122 Intake and Output 05/16/18 05/17/18 19:00 07:00 Intake Total 1820.815 ml 1325.80 ml Output Total 1650 ml 350 ml Balance 170.815 ml 975.80 ml Intake Free Water 30 ml 150 ml IV Total 1220.815 ml 655.80 ml Tube Feeding 520 ml 520 ml Other 50 ml Output Urine Total 1250 ml 350 ml Other 400 ml # Bowel Movements 1 2 Laboratory Tests 05/16/18 13:15: Prothrombin Time 12.0H, Prothromb Time International Ratio 1.1, Activated Partial Thromboplast Time 33 05/16/18 14:35: Body Fluid Source Pleural, Body Fluid Volume 24, Body Fluid Appearance Hazy, Body Fluid pH 7.0, Body Fluid RBC 662, Body Fluid Total Nucleated Cells 4862, Body Fluid Polynuclear WBCs (%) 93, Body Fluid Mononuclear WBCs (%) 7, Body Fluid Mesothelial Cells (%) 0 Height (Feet): 5 Height (Inches): 7.00 Weight (Pounds): 200 Objective GENERAL: An ill-appearing female, withdrawn HEENT: Fairly negative. NECK: Supple. Tracheostomy is in midline. LUNGS: improved air entry specifically in the right lung. CARDIAC: S1 and S2. tachy resolved ABDOMEN: Soft and nontender. GT EXTREMITIES: No cyanosis or clubbing. Ankit Bell MD May 17, 2018 09:42
[2018-05-17] MEDS: Aspirin Baby 81mg ORAL SCH (09:53)
[2018-05-17] MEDS: Vancomycin 1250mg/D5W 250ml IVPB SCH (09:54)
[2018-05-17] MEDS: Phenytoin Susp 100mg/4ml NG SCH ×2 (09:54→21:39)
[2018-05-17] MEDS: Docusate 100mg/10ml Liq GT SCH (09:54)
[2018-05-17] MEDS: Metoprolol Succinate XL 50mg tab ORAL SCH ×2 (09:55→20:46)
[2018-05-17] MEDS: levETIRAcetam 500mg/5ml Liquid NG SCH ×2 (10:08→20:46)
[2018-05-17 12:00] VITALS: BP 115/61
[2018-05-17] MEDS ORDERED: NS 275ml ONE (15:24)
[2018-05-17] MEDS ORDERED: 1/2 NS 1000ml IV ONE (15:24)
[2018-05-17 16:00] VITALS: BP 114/71
[2018-05-17 20:00] VITALS: BP 116/82
[2018-05-17] MEDS: Sennosides 8.6mg ORAL SCH (20:45)
[2018-05-17] MEDS: Miralax 17gm pkt GT SCH (20:47)
--- NOTE | 2018-05-17 23:05 | Cardiology Progress Note ---
Assessment/Plan Assessment/Plan 1. Hypotension, resolved, continue hydration. 2. Sinus tachycardia, better, s/p right thoracentesis, removing 400 cc. Continue B-blockers. 3. Ventilatory-drive respiratory failure. 4. History of dysphagia, status post PEG placement. 5. History of seizure disorder. Subjective Subjective Sinus tachycardia at 103. Objective Last 24 Hour Vital Signs Date Time Temp Pulse Resp B/P (MAP) Pulse Ox O2 Delivery O2 Flow Rate FiO2 05/17/18 22:09 103 22 60 05/17/18 20:46 118 116/82 05/17/18 20:00 112 05/17/18 19:37 103 26 100 Mechanical Ventilator 40 05/17/18 19:27 103 30 100 Mechanical Ventilator 40 05/17/18 19:18 116 30 60 05/17/18 16:44 99 24 50 05/17/18 16:00 99 05/17/18 16:00 98.8 95 20 114/71 (85) 98 98.8 05/17/18 16:00 Mechanical Ventilator 05/17/18 16:00 40 05/17/18 14:39 101 24 50 05/17/18 13:33 81 22 100 Mechanical Ventilator 40 05/17/18 13:29 81 22 50 05/17/18 12:16 104 05/17/18 12:00 98.0 91 21 115/61 (79) 98 98.0 05/17/18 12:00 40 05/17/18 12:00 Mechanical Ventilator 05/17/18 11:43 98 21 100 Mechanical Ventilator 40 05/17/18 10:49 98 31 50 05/17/18 09:55 95 126/76 05/17/18 08:35 95 23 50 05/17/18 08:00 Mechanical Ventilator 05/17/18 08:00 40 05/17/18 08:00 98.1 103 22 117/51 (73) 98 98.1 05/17/18 07:59 99 21 100 Mechanical Ventilator 40 05/17/18 07:27 99 21 50 05/17/18 07:09 99 22 100 Mechanical Ventilator 40 05/17/18 04:48 99 23 50 05/17/18 04:17 103 05/17/18 04:00 97.3 98 20 126/76 (93) 98 97.3 05/17/18 04:00 40 05/17/18 04:00 Mechanical Ventilator 05/17/18 02:40 118 20 50 05/17/18 01:30 121 21 50 05/17/18 00:29 107 20 100 Mechanical Ventilator 40 05/17/18 00:19 104 23 100 Mechanical Ventilator 40 05/17/18 00:17 104 23 40 05/17/18 00:00 40 05/17/18 00:00 107 05/17/18 00:00 Mechanical Ventilator 05/17/18 00:00 98.1 96 52 121/51 (74) 100 98.1 Intake and Output 05/16/18 05/17/18 19:00 07:00 Intake Total 1820.815 ml 1325.80 ml Output Total 1650 ml 350 ml Balance 170.815 ml 975.80 ml Intake Free Water 30 ml 150 ml IV Total 1220.815 ml 655.80 ml Tube Feeding 520 ml 520 ml Other 50 ml Output Urine Total 1250 ml 350 ml Other 400 ml # Bowel Movements 1 2 Microbiology Date/Time Source Procedure Growth Status 05/16/18 14:35 Pleural Fluid Gram Stain - Final Resulted 05/16/18 14:35 Pleural Fluid Body Fluid Culture - Preliminary NO GROWTH Resulted Objective HEENT: Atraumatic and normocephalic. Bitemporal wasting. Pupils are equal, round, and reactive to light and accommodation. NECK: JVP cannot be assessed due to positive inspiratory pressure. There is presence of tracheostomy tube. No carotid bruit. CARDIOVASCULAR: Normal S1 and S2. Regular rate and rhythm. Tachycardic. No murmurs, gallops, or rubs. LUNGS: Diminished breath sounds in the right lung. Positive dullness on percussion on the right lung. ABDOMEN: Soft, nontender, and nondistended. Presence of a G-tube. EXTREMITIES: No evidence of edema, clubbing, or cyanosis. Kehinde Kendrick MD May 17, 2018 23:05
[2018-05-18] VITALS: BP 110/75
[2018-05-18 04:00] VITALS: BP 108/68
[2018-05-18] MEDS: Piperacillin/Tazobactam 3.375 GM in D5W 110 ML IVPB SCH ×3 (05:20→22:22)
[2018-05-18] MEDS ORDERED: Levalbuterol Inh UD 1.25mg/0.5ml ONE (07:39)
[2018-05-18 08:00] VITALS: BP 111/65
--- NOTE | 2018-05-18 08:11 | General Progress Note ---
Assessment/Plan Assessment/Plan IMPRESSION: 1. Large right pleural effusion. s/p tap 2. Respiratory failure. 3. Tracheostomy. 4. Acute on chronic renal failure. 5. Lactic acidemia. 6. Leukocytosis. 7. Possible sepsis. 8. Severe protein-calorie malnutrition. 9. tachycardia PLAN hydration as per renal beta brianna renal and ID noted follow up labs for change wbc still elevated monitor hemodynamics t/f zuniga once stable- possibly today if able DNR Subjective ROS Limited/Unobtainable: Yes Allergies: Coded Allergies: No Known Allergies (Unverified , 04/03/17) Subjective poor LOC DNR Objective Last 24 Hour Vital Signs Date Time Temp Pulse Resp B/P (MAP) Pulse Ox O2 Delivery O2 Flow Rate FiO2 05/18/18 07:43 109 28 60 05/18/18 04:47 85 22 60 05/18/18 04:00 98.1 102 26 108/68 (81) 100 98.1 05/18/18 04:00 Mechanical Ventilator 05/18/18 04:00 40 05/18/18 04:00 96 05/18/18 03:12 98 24 60 05/18/18 00:35 121 31 100 Mechanical Ventilator 40 05/18/18 00:35 121 31 60 05/18/18 00:35 Mechanical Ventilator 40 05/18/18 00:00 Mechanical Ventilator 05/18/18 00:00 40 05/18/18 00:00 98.2 108 24 110/75 (87) 99 98.2 05/18/18 00:00 104 05/17/18 23:17 97 20 60 05/17/18 22:09 103 22 60 05/17/18 20:46 118 116/82 05/17/18 20:00 98.1 118 24 116/82 (93) 100 98.1 05/17/18 20:00 Mechanical Ventilator 05/17/18 20:00 112 05/17/18 20:00 40 05/17/18 19:37 103 26 100 Mechanical Ventilator 40 05/17/18 19:27 103 30 100 Mechanical Ventilator 40 05/17/18 19:18 116 30 60 05/17/18 16:44 99 24 50 05/17/18 16:00 99 05/17/18 16:00 98.8 95 20 114/71 (85) 98 98.8 7/14/18 16:00 Mechanical Ventilator 05/17/18 16:00 40 05/17/18 14:39 101 24 50 05/17/18 13:33 81 22 100 Mechanical Ventilator 40 05/17/18 13:29 81 22 50 05/17/18 12:16 104 05/17/18 12:00 98.0 91 21 115/61 (79) 98 98.0 05/17/18 12:00 40 05/17/18 12:00 Mechanical Ventilator 05/17/18 11:43 98 21 100 Mechanical Ventilator 40 05/17/18 10:49 98 31 50 05/17/18 09:55 95 126/76 05/17/18 08:35 95 23 50 Intake and Output 05/17/18 05/18/18 19:00 07:00 Intake Total 2148.2 ml 1573.25 ml Balance 2148.2 ml 1573.25 ml Intake Free Water 100 ml 50 ml IV Total 1268.2 ml 906.25 ml Tube Feeding 780 ml 617 ml # Bowel Movements 4 3 Labs Test 05/16/18 04:05 05/16/18 13:15 05/16/18 14:35 White Blood Count 20.1 K/UL (4.8-10.8) Red Blood Count 3.07 M/UL (4.20-5.40) Hemoglobin 8.4 G/DL (12.0-16.0) Hematocrit 26.9 % (37.0-47.0) Mean Corpuscular Volume 88 FL (80-99) Mean Corpuscular Hemoglobin 27.2 PG (27.0-31.0) Mean Corpuscular Hemoglobin Concent 31.1 G/DL (32.0-36.0) Red Cell Distribution Width 15.7 % (11.6-14.8) Platelet Count 413 K/UL (150-450) Mean Platelet Volume 6.5 FL (6.5-10.1) Neutrophils (%) (Auto) % (45.0-75.0) Lymphocytes (%) (Auto) % (20.0-45.0) Monocytes (%) (Auto) % (1.0-10.0) Eosinophils (%) (Auto) % (0.0-3.0) Basophils (%) (Auto) % (0.0-2.0) Differential Total Cells Counted 100 Neutrophils % (Manual) 80 % (45-75) Lymphocytes % (Manual) 10 % (20-45) Monocytes % (Manual) 10 % (1-10) Eosinophils % (Manual) 0 % (0-3) Basophils % (Manual) 0 % (0-2) Band Neutrophils 0 % (0-8) Platelet Estimate Adequate Platelet Morphology Normal Hypochromasia 1+ Anisocytosis 1+ Target Cells 1+ Tear Drop Cells 1+ Sodium Level 144 MMOL/L (136-145) Potassium Level 3.5 MMOL/L (3.5-5.1) Chloride Level 111 MMOL/L (98-107) Carbon Dioxide Level 21 MMOL/L (21-32) Anion Gap 13 mmol/L (5-15) Blood Urea Nitrogen 45 mg/dL (7-18) Creatinine 1.2 MG/DL (0.55-1.30) Estimat Glomerular Filtration Rate 55.6 mL/min (>60) Glucose Level 188 MG/DL (74-106) Calcium Level 8.4 MG/DL (8.5-10.1) Prothrombin Time 12.0 SEC (9.30-11.50) Prothromb Time International Ratio 1.1 (0.9-1.1) Activated Partial Thromboplast Time 33 SEC (23-33) Body Fluid Source Pleural Body Fluid Volume 24 mL Body Fluid Appearance Hazy Body Fluid pH 7.0 Body Fluid RBC 662 /CUMM Body Fluid Total Nucleated Cells 4862 /CUMM Body Fluid Polynuclear WBCs (%) 93 % Body Fluid Mononuclear WBCs (%) 7 % Body Fluid Mesothelial Cells (%) 0 % Height (Feet): 5 Height (Inches): 7.00 Weight (Pounds): 200 Objective GENERAL: An ill-appearing female, withdrawn HEENT: Fairly negative. NECK: Supple. Tracheostomy is in midline. LUNGS: improved air entry specifically in the right lung. CARDIAC: S1 and S2. tachy resolved ABDOMEN: Soft and nontender. GT EXTREMITIES: No cyanosis or clubbing. Ankit Bell MD May 18, 2018 08:11
[2018-05-18] MEDS: Vancomycin 1250mg/D5W 250ml IVPB SCH (09:00)
[2018-05-18] MEDS: LORazepam Inj 2mg/ml 1ml IV PRN ×4 (09:23→17:53)
[2018-05-18] MEDS: Aspirin Baby 81mg ORAL SCH (09:26)
[2018-05-18] MEDS: Docusate 100mg/10ml Liq GT SCH (09:26)
[2018-05-18] MEDS: levETIRAcetam 500mg/5ml Liquid NG SCH ×2 (09:26→20:33)
[2018-05-18] MEDS: Phenytoin Susp 100mg/4ml NG SCH ×2 (09:26→20:34)
[2018-05-18] MEDS: Metoprolol Succinate XL 50mg tab ORAL SCH ×2 (09:27→20:33)
[2018-05-18] MEDS: D5W w/KCl 20mEq 1,000 ML IV SCH ×2 (09:27→22:21)
--- NOTE | 2018-05-18 10:13 | Infectious Diseases Prog Note ---
Assessment/Plan Assessment/Plan A 1. pneumonia 2. pleural effusion 3. Ventilator dependent respiratory failure 4. renal failure improving 5. leucocytosis 6. hypertension 7. seizures, status epilepticus P 1. continue vancomycin iv, Zosyn 2. Pleural fluid cultures so far is negative Subjective ROS Limited/Unobtainable: Yes Neurologic: Reports: other - seizure activity not responding to medications Allergies: Coded Allergies: No Known Allergies (Unverified , 04/03/17) Objective Vital Signs Last 24 Hour Vital Signs Date Time Temp Pulse Resp B/P (MAP) Pulse Ox O2 Delivery O2 Flow Rate FiO2 05/18/18 09:27 96 108/68 05/18/18 08:43 96 24 60 05/18/18 07:43 109 28 60 05/18/18 04:47 85 22 60 05/18/18 04:00 98.1 102 26 108/68 (81) 100 98.1 05/18/18 04:00 Mechanical Ventilator 05/18/18 04:00 40 05/18/18 04:00 96 05/18/18 03:12 98 24 60 05/18/18 00:35 121 31 100 Mechanical Ventilator 40 05/18/18 00:35 121 31 60 05/18/18 00:35 Mechanical Ventilator 40 05/18/18 00:00 Mechanical Ventilator 05/18/18 00:00 40 05/18/18 00:00 98.2 108 24 110/75 (87) 99 98.2 05/18/18 00:00 104 05/17/18 23:17 97 20 60 05/17/18 22:09 103 22 60 05/17/18 20:46 118 116/82 05/17/18 20:00 98.1 118 24 116/82 (93) 100 98.1 05/17/18 20:00 Mechanical Ventilator 05/17/18 20:00 112 05/17/18 20:00 40 05/17/18 19:37 103 26 100 Mechanical Ventilator 40 05/17/18 19:27 103 30 100 Mechanical Ventilator 40 05/17/18 19:18 116 30 60 05/17/18 16:44 99 24 50 05/17/18 16:00 99 05/17/18 16:00 98.8 95 20 114/71 (85) 98 98.8 05/17/18 16:00 Mechanical Ventilator 05/17/18 16:00 40 05/17/18 14:39 101 24 50 05/17/18 13:33 81 22 100 Mechanical Ventilator 40 05/17/18 13:29 81 22 50 05/17/18 12:16 104 05/17/18 12:00 98.0 91 21 115/61 (79) 98 98.0 05/17/18 12:00 40 05/17/18 12:00 Mechanical Ventilator 05/17/18 11:43 98 21 100 Mechanical Ventilator 40 05/17/18 10:49 98 31 50 Height (Feet): 5 Height (Inches): 7.00 Weight (Pounds): 200 HEENT: status post trach Respiratory/Chest: lungs clear, other - on ventilator Cardiovascular: normal rate Abdomen: soft, non tender, other - GT feeding Extremities: no edema Neurologic/Psychiatric: other - tonic-clonic seizure Microbiology Date/Time Source Procedure Growth Status 05/16/18 14:35 Pleural Fluid Gram Stain - Final Resulted 05/16/18 14:35 Pleural Fluid Body Fluid Culture - Preliminary NO GROWTH Resulted Laboratory Tests Test 05/18/18 07:55 Vancomycin Level Trough 10.9 ug/mL (5.0-12.0) Current Medications Medications (Trade) Dose Ordered Sig/Mario Route PRN Reason Start Time Stop Time Status Last Admin Dose Admin Acetaminophen (Tylenol) 650 mg Q4H PRN GT Mild Pain/Temp > 100.5 05/12/18 18:15 06/11/18 18:14 05/14/18 22:28 Aspirin (ASA) 81 mg DAILY ORAL 05/13/18 09:00 06/12/18 08:59 05/18/18 09:26 Dextrose/ Electrolytes 1,000 ml @ 75 mls/hr [id number] IV 05/17/18 06:45 06/16/18 06:44 05/18/18 09:27 Docusate Sodium (Colace) 250 mg DAILY GT 05/13/18 09:00 06/12/18 08:59 05/18/18 09:26 Levetiracetam (Keppra) 1,500 mg Q12HR NG 05/12/18 21:00 06/11/18 20:59 05/18/18 09:26 Lorazepam (Ativan 2mg/ml 1ml) 1 mg EVERY 6 HOURS PRN IV For Anxiety 05/13/18 00:15 05/20/18 00:14 05/18/18 10:02 Lorazepam (Ativan 2mg/ml 1ml) 2 mg Q2H PRN IV For Seizures 05/12/18 18:15 05/19/18 18:14 Metoprolol Succinate (Toprol XL) 50 mg Q12HR ORAL 05/15/18 09:00 06/14/18 08:59 05/18/18 09:27 Multivitamins (Multivitamins) 1 tab DAILY ORAL 05/13/18 09:00 06/12/18 08:59 05/18/18 09:27 Phenytoin (Dilantin) 175 mg EVERY 12 HOURS NG 05/12/18 21:00 06/11/18 20:59 05/18/18 09:26 Piperacillin Sod/ Tazobactam Sod 3.375 gm/Dextrose 110 ml @ 27.5 mls/hr Q8HR IVPB 05/12/18 22:00 05/19/18 21:59 05/18/18 05:20 Polyethylene Glycol (Miralax) 17 gm BEDTIME GT 05/15/18 21:00 06/14/18 20:59 05/17/18 20:47 Sennosides (Senokot) 2 tab BEDTIME ORAL 05/12/18 21:00 06/11/18 20:59 05/17/18 20:45 Vancomycin HCl (Vanco rx to dose) 1 ea DAILY PRN MISC Per rx protocol 05/12/18 18:45 06/11/18 18:44 Vancomycin HCl/ Dextrose 250 ml @ 166.667 mls/hr Q24H IVPB 05/15/18 09:00 05/20/18 08:59 05/18/18 09:00 Fei De Leon MD May 18, 2018 10:13
[2018-05-18] MEDS ORDERED: LORazepam Inj 2mg/ml 1ml IV SCH (10:29)
[2018-05-18] MEDS ORDERED: carBAMazepine 200mg tab GT SCH (11:00)
[2018-05-18 12:00] VITALS: BP 102/51
--- NOTE | 2018-05-18 13:10 | Cardiology Report ---
APPROVED REPORT EXAM: Two-dimensional and M-mode echocardiogram with Doppler and color Doppler. INDICATION Tachycardia M-Mode DIMENSIONS IVSd0.8 (0.7-1.1cm)Left Atrium (MM)2.6 (1.6-4.0cm) LVDd3.2 (3.5-5.6cm)Aortic Root2.6 (2.0-3.7cm) PWd0.9 (0.7-1.1cm)Aortic Cusp Exc.1.7 (1.5-2.0cm) LVDs1.3 (2.5-4.0cm) PWs1.5 cm Technically difficult study due to poor acoustical windows. Patient on vent. Normal left ventricular chamber size, systolic function and wall motion. Left ventricular ejection fraction estimated to be 60-65 %. Mild left ventricular hypertrophy. No evidence of pericardial or pleural effusion. All other cardiac chamber sizes are within normal limits. Focal aortic valve sclerosis with adequate cusp excursion. Normal mitral valve leaflets with normal excursion. Mild mitral annulus and aortic root calcification. Pulmonic valve not well visualized. Normal tricuspid valve structure. IVC is not obtainable due to GI tube. A color flow and spectral Doppler study was performed and revealed: No aortic regurgitation. No mitral regurgitation. Mitral diastolic velocities suggest reduced left ventricular relaxation c/w diastolic dysfunction grade 1. Trace tricuspid regurgitation. Tricuspid systolic velocities suggests peak right ventricular systolic pressure of 30mmHg
[2018-05-18 16:00] VITALS: BP 124/65
[2018-05-18] MEDS: carBAMazepine 200mg tab GT SCH (17:54)
--- NOTE | 2018-05-18 19:14 | Cardiology Progress Note ---
Assessment/Plan Assessment/Plan 1. Hypotension, resolved, continue hydration. 2. Sinus tachycardia, slightly better, s/p right thoracentesis, removing 400 cc. Continue B-blockers. 3. Ventilatory-drive respiratory failure. 4. History of dysphagia, status post PEG placement. 5. History of seizure disorder. Subjective Subjective Sinus rhythm at 98. s/p right thoracentesis. Objective Last 24 Hour Vital Signs Date Time Temp Pulse Resp B/P (MAP) Pulse Ox O2 Delivery O2 Flow Rate FiO2 05/18/18 16:49 116 28 60 05/18/18 16:00 101 05/18/18 16:00 Mechanical Ventilator 05/18/18 16:00 60 05/18/18 15:29 110 24 60 05/18/18 13:08 98 24 60 05/18/18 12:00 Mechanical Ventilator 05/18/18 12:00 99.8 103 20 102/51 (68) 100 99.8 05/18/18 12:00 60 05/18/18 12:00 97 05/18/18 11:17 106 22 60 05/18/18 09:27 96 108/68 05/18/18 08:43 96 24 60 05/18/18 08:00 97.7 100 21 111/65 (80) 100 97.7 05/18/18 08:00 100 05/18/18 08:00 60 05/18/18 08:00 Mechanical Ventilator 05/18/18 07:55 93 25 Mechanical Ventilator 60 05/18/18 07:43 109 28 60 05/18/18 04:47 85 22 60 05/18/18 04:00 98.1 102 26 108/68 (81) 100 98.1 05/18/18 04:00 Mechanical Ventilator 05/18/18 04:00 40 05/18/18 04:00 96 05/18/18 03:12 98 24 60 05/18/18 00:35 121 31 100 Mechanical Ventilator 40 05/18/18 00:35 121 31 60 05/18/18 00:35 Mechanical Ventilator 40 05/18/18 00:00 Mechanical Ventilator 05/18/18 00:00 40 05/18/18 00:00 98.2 108 24 110/75 (87) 99 98.2 05/18/18 00:00 104 05/17/18 23:17 97 20 60 05/17/18 22:09 103 22 60 05/17/18 20:46 118 116/82 05/17/18 20:00 98.1 118 24 116/82 (93) 100 98.1 05/17/18 20:00 Mechanical Ventilator 05/17/18 20:00 112 05/17/18 20:00 40 05/17/18 19:37 103 26 100 Mechanical Ventilator 40 05/17/18 19:27 103 30 100 Mechanical Ventilator 40 05/17/18 19:18 116 30 60 Intake and Output 05/17/18 05/18/18 19:00 07:00 Intake Total 2148.2 ml 1573.25 ml Balance 2148.2 ml 1573.25 ml Intake Free Water 100 ml 50 ml IV Total 1268.2 ml 906.25 ml Tube Feeding 780 ml 617 ml # Bowel Movements 4 3 2D Echo: EF 6-65%, Mild LVH, Grade I LVDD, RVSP 30 mmHg Laboratory Tests Test 05/18/18 07:55 Vancomycin Level Trough 10.9 ug/mL (5.0-12.0) Microbiology Date/Time Source Procedure Growth Status 05/16/18 14:35 Pleural Fluid Gram Stain - Final Resulted 05/16/18 14:35 Pleural Fluid Body Fluid Culture - Preliminary NO GROWTH AFTER 24 HOURS Resulted Objective HEENT: Atraumatic and normocephalic. Bitemporal wasting. Pupils are equal, round, and reactive to light and accommodation. NECK: JVP cannot be assessed due to positive inspiratory pressure. There is presence of tracheostomy tube. No carotid bruit. CARDIOVASCULAR: Normal S1 and S2. Regular rate and rhythm. Tachycardic. No murmurs, gallops, or rubs. LUNGS: Diminished breath sounds in the right lung. Positive dullness on percussion on the right lung. ABDOMEN: Soft, nontender, and nondistended. Presence of a G-tube. EXTREMITIES: No evidence of edema, clubbing, or cyanosis. Kehinde Kendrick MD May 18, 2018 19:14
[2018-05-18 20:00] VITALS: BP 138/89
[2018-05-18] MEDS: Miralax 17gm pkt GT SCH (20:33)
[2018-05-18] MEDS: Sennosides 8.6mg ORAL SCH (20:33)
[2018-05-19] VITALS: BP 142/86
[2018-05-19] MEDS: LORazepam Inj 2mg/ml 1ml IV PRN (03:35)
[2018-05-19 04:31] VITALS: BP 147/86
[2018-05-19] MEDS: Piperacillin/Tazobactam 3.375 GM in D5W 110 ML IVPB SCH ×3 (05:13→22:09)
[2018-05-19 08:00] VITALS: BP 138/78
--- NOTE | 2018-05-19 08:19 | General Progress Note ---
Assessment/Plan Assessment/Plan IMPRESSION: 1. Large right pleural effusion. s/p tap 2. Respiratory failure. 3. Tracheostomy. 4. Acute on chronic renal failure. 5. Lactic acidemia. 6. Leukocytosis. 7. Possible sepsis. 8. Severe protein-calorie malnutrition. 9. tachycardia 10. seizure PLAN hydration as per renal beta brianna anti seizure meds ativan prn renal and ID noted follow up labs for change wbc still elevated monitor hemodynamics t/f zuniga once stable- HR again high DNR Subjective ROS Limited/Unobtainable: Yes Allergies: Coded Allergies: No Known Allergies (Unverified , 04/03/17) Subjective poor LOC DNR had seizure last night Objective Last 24 Hour Vital Signs Date Time Temp Pulse Resp B/P (MAP) Pulse Ox O2 Delivery O2 Flow Rate FiO2 05/19/18 08:00 Mechanical Ventilator 05/19/18 08:00 60 05/19/18 07:06 134 24 60 05/19/18 05:05 119 25 60 05/19/18 04:31 98.3 118 26 147/86 (106) 100 98.3 05/19/18 04:00 60 05/19/18 04:00 Mechanical Ventilator 05/19/18 04:00 118 05/19/18 03:24 125 30 60 05/19/18 00:40 105 19 60 05/19/18 00:00 98.4 107 21 142/86 (104) 100 98.4 05/19/18 00:00 Mechanical Ventilator 05/19/18 00:00 60 05/19/18 00:00 107 05/18/18 22:57 106 19 60 05/18/18 21:20 107 21 60 05/18/18 20:33 77 149/72 05/18/18 20:00 116 05/18/18 20:00 Mechanical Ventilator 05/18/18 20:00 98.3 120 23 138/89 (105) 100 98.3 05/18/18 20:00 60 05/18/18 19:21 124 21 60 05/18/18 16:49 116 28 60 05/18/18 16:00 101 05/18/18 16:00 Mechanical Ventilator 05/18/18 16:00 60 05/18/18 16:00 98.7 98 21 124/65 (84) 100 98.7 05/18/18 15:29 110 24 60 05/18/18 13:08 98 24 60 05/18/18 12:00 Mechanical Ventilator 05/18/18 12:00 99.8 103 20 102/51 (68) 100 99.8 05/18/18 12:00 60 05/18/18 12:00 97 05/18/18 11:17 106 22 60 05/18/18 09:27 96 108/68 05/18/18 08:43 96 24 60 Intake and Output 05/18/18 05/19/18 19:00 07:00 Intake Total 1322.5 ml 1662.0 ml Output Total 450 ml 400 ml Balance 872.5 ml 1262.0 ml Intake Free Water 100 ml 50 ml IV Total 702.5 ml 1060.0 ml Tube Feeding 520 ml 552 ml Output Urine Total 450 ml 400 ml # Bowel Movements 3 4 Labs Test 05/16/18 13:15 05/16/18 14:35 05/18/18 07:55 Prothrombin Time 12.0 SEC (9.30-11.50) Prothromb Time International Ratio 1.1 (0.9-1.1) Activated Partial Thromboplast Time 33 SEC (23-33) Body Fluid Source Pleural Body Fluid Volume 24 mL Body Fluid Appearance Hazy Body Fluid pH 7.0 Body Fluid RBC 662 /CUMM Body Fluid Total Nucleated Cells 4862 /CUMM Body Fluid Polynuclear WBCs (%) 93 % Body Fluid Mononuclear WBCs (%) 7 % Body Fluid Mesothelial Cells (%) 0 % Vancomycin Level Trough 10.9 ug/mL (5.0-12.0) Height (Feet): 5 Height (Inches): 7.00 Weight (Pounds): 200 Objective GENERAL: An ill-appearing female, withdrawn, poor LOC HEENT: Fairly negative. NECK: Supple. Tracheostomy is in midline. LUNGS: stable air entry specifically in the right lung. CARDIAC: S1 and S2. tachy resolved ABDOMEN: Soft and nontender. GT EXTREMITIES: No cyanosis or clubbing. Ankit Bell MD May 19, 2018 08:18
[2018-05-19] MEDS: carBAMazepine 200mg tab GT SCH ×2 (08:32→17:50)
[2018-05-19] MEDS: Aspirin Baby 81mg ORAL SCH (08:32)
[2018-05-19] MEDS: Docusate 100mg/10ml Liq GT SCH (08:33)
[2018-05-19] MEDS: levETIRAcetam 500mg/5ml Liquid NG SCH ×2 (08:33→22:01)
[2018-05-19] MEDS: Phenytoin Susp 100mg/4ml NG SCH ×2 (08:34→22:00)
[2018-05-19] MEDS: Heparin 5000 units/ml inj SUBQ SCH ×2 (08:35→22:03)
[2018-05-19] MEDS: Metoprolol Succinate XL 50mg tab ORAL SCH ×2 (08:36→22:01)
[2018-05-19] MEDS: Vancomycin 1.5 GM/D5W 250ML IVPB SCH (09:20)
[2018-05-19 12:00] VITALS: BP 126/65
[2018-05-19] MEDS: D5W w/KCl 20mEq 1,000 ML IV SCH ×2 (12:54→23:01)
[2018-05-19 16:00] VITALS: BP 108/63
[2018-05-19 20:00] VITALS: BP 133/73
--- NOTE | 2018-05-19 20:04 | Cardiology Progress Note ---
Assessment/Plan Assessment/Plan 1. Hypotension, resolved, continue hydration. 2. Sinus tachycardia, s/p right thoracentesis, removing 400 cc. Continue B- blockers. 3. Ventilatory-drive respiratory failure. 4. History of dysphagia, status post PEG placement. 5. History of seizure disorder. Subjective Subjective Sinus tachycardia at 120. Objective Last 24 Hour Vital Signs Date Time Temp Pulse Resp B/P (MAP) Pulse Ox O2 Delivery O2 Flow Rate FiO2 05/19/18 19:24 120 27 45 05/19/18 16:30 116 29 45 05/19/18 16:00 120 05/19/18 16:00 99.6 117 21 108/63 (78) 45 99.6 05/19/18 16:00 60 05/19/18 16:00 Mechanical Ventilator 05/19/18 15:15 125 24 50 05/19/18 13:05 129 25 50 05/19/18 12:00 60 05/19/18 12:00 Mechanical Ventilator 05/19/18 12:00 99.7 116 26 126/65 (85) 100 99.7 05/19/18 12:00 115 05/19/18 10:30 128 23 50 05/19/18 09:19 129 25 50 05/19/18 08:36 118 138/78 05/19/18 08:00 100.0 118 26 138/78 (98) 100 100.0 05/19/18 08:00 132 05/19/18 08:00 Mechanical Ventilator 05/19/18 08:00 60 05/19/18 07:06 134 24 60 05/19/18 05:05 119 25 60 05/19/18 04:31 98.3 118 26 147/86 (106) 100 98.3 05/19/18 04:00 60 05/19/18 04:00 Mechanical Ventilator 05/19/18 04:00 118 05/19/18 03:24 125 30 60 05/19/18 00:40 105 19 60 05/19/18 00:00 98.4 107 21 142/86 (104) 100 98.4 05/19/18 00:00 Mechanical Ventilator 05/19/18 00:00 60 05/19/18 00:00 107 05/18/18 22:57 106 19 60 05/18/18 21:20 107 21 60 05/18/18 20:33 77 149/72 Intake and Output 05/18/18 05/19/18 19:00 07:00 Intake Total 1322.5 ml 1662.0 ml Output Total 450 ml 400 ml Balance 872.5 ml 1262.0 ml Intake Free Water 100 ml 50 ml IV Total 702.5 ml 1060.0 ml Tube Feeding 520 ml 552 ml Output Urine Total 450 ml 400 ml # Bowel Movements 3 4 2D Echo: EF 6-65%, Mild LVH, Grade I LVDD, RVSP 30 mmHg Laboratory Tests Test 05/19/18 09:14 Arterial Blood pH 7.428 (7.350-7.450) Arterial Blood Partial Pressure CO2 37.7 mmHg (35.0-45.0) Arterial Blood Partial Pressure O2 249.0 mmHg (75.0-100.0) H Arterial Blood HCO3 24.9 mmol/L (22.0-26.0) Arterial Blood Oxygen Saturation 99.2 % (92.0-98.0) H Arterial Blood Base Excess 0.6 Ismael Test Positive Objective HEENT: Atraumatic and normocephalic. Bitemporal wasting. Pupils are equal, round, and reactive to light and accommodation. NECK: JVP cannot be assessed due to positive inspiratory pressure. There is presence of tracheostomy tube. No carotid bruit. CARDIOVASCULAR: Normal S1 and S2. Regular rate and rhythm. Tachycardic. No murmurs, gallops, or rubs. LUNGS: Diminished breath sounds in the right lung. Positive dullness on percussion on the right lung. ABDOMEN: Soft, nontender, and nondistended. Presence of a G-tube. EXTREMITIES: No evidence of edema, clubbing, or cyanosis. Kehinde Kendrick MD May 19, 2018 20:04
--- NOTE | 2018-05-19 20:05 | Cardiology Progress Note ---
Assessment/Plan Assessment/Plan 1. Hypotension, resolved, continue hydration. 2. Sinus tachycardia, slightly better, s/p right thoracentesis, removing 400 cc. Continue B-blockers. 3. Ventilatory-drive respiratory failure. 4. History of dysphagia, status post PEG placement. 5. History of seizure disorder. Subjective Subjective Sinus rhythm at 98. s/p right thoracentesis. Objective Last 24 Hour Vital Signs Date Time Temp Pulse Resp B/P (MAP) Pulse Ox O2 Delivery O2 Flow Rate FiO2 05/19/18 19:24 120 27 45 05/19/18 16:30 116 29 45 05/19/18 16:00 120 05/19/18 16:00 99.6 117 21 108/63 (78) 45 99.6 05/19/18 16:00 60 05/19/18 16:00 Mechanical Ventilator 05/19/18 15:15 125 24 50 05/19/18 13:05 129 25 50 05/19/18 12:00 60 05/19/18 12:00 Mechanical Ventilator 05/19/18 12:00 99.7 116 26 126/65 (85) 100 99.7 05/19/18 12:00 115 05/19/18 10:30 128 23 50 05/19/18 09:19 129 25 50 05/19/18 08:36 118 138/78 05/19/18 08:00 100.0 118 26 138/78 (98) 100 100.0 05/19/18 08:00 132 05/19/18 08:00 Mechanical Ventilator 05/19/18 08:00 60 05/19/18 07:06 134 24 60 05/19/18 05:05 119 25 60 05/19/18 04:31 98.3 118 26 147/86 (106) 100 98.3 05/19/18 04:00 60 05/19/18 04:00 Mechanical Ventilator 05/19/18 04:00 118 05/19/18 03:24 125 30 60 05/19/18 00:40 105 19 60 05/19/18 00:00 98.4 107 21 142/86 (104) 100 98.4 05/19/18 00:00 Mechanical Ventilator 05/19/18 00:00 60 05/19/18 00:00 107 05/18/18 22:57 106 19 60 05/18/18 21:20 107 21 60 05/18/18 20:33 77 149/72 Intake and Output 05/18/18 05/19/18 19:00 07:00 Intake Total 1322.5 ml 1662.0 ml Output Total 450 ml 400 ml Balance 872.5 ml 1262.0 ml Intake Free Water 100 ml 50 ml IV Total 702.5 ml 1060.0 ml Tube Feeding 520 ml 552 ml Output Urine Total 450 ml 400 ml # Bowel Movements 3 4 Laboratory Tests Test 05/19/18 09:14 Arterial Blood pH 7.428 (7.350-7.450) Arterial Blood Partial Pressure CO2 37.7 mmHg (35.0-45.0) Arterial Blood Partial Pressure O2 249.0 mmHg (75.0-100.0) H Arterial Blood HCO3 24.9 mmol/L (22.0-26.0) Arterial Blood Oxygen Saturation 99.2 % (92.0-98.0) H Arterial Blood Base Excess 0.6 Ismael Test Positive Objective HEENT: Atraumatic and normocephalic. Bitemporal wasting. Pupils are equal, round, and reactive to light and accommodation. NECK: JVP cannot be assessed due to positive inspiratory pressure. There is presence of tracheostomy tube. No carotid bruit. CARDIOVASCULAR: Normal S1 and S2. Regular rate and rhythm. Tachycardic. No murmurs, gallops, or rubs. LUNGS: Diminished breath sounds in the right lung. Positive dullness on percussion on the right lung. ABDOMEN: Soft, nontender, and nondistended. Presence of a G-tube. EXTREMITIES: No evidence of edema, clubbing, or cyanosis. Kehinde Kendrick MD May 19, 2018 20:05
[2018-05-19] MEDS: Sennosides 8.6mg ORAL SCH (22:00)
[2018-05-19] MEDS: Miralax 17gm pkt GT SCH (22:00)
[2018-05-20] VITALS: BP 112/60
[2018-05-20 04:00] VITALS: BP 124/66
[2018-05-20] MEDS: Piperacillin/Tazobactam 3.375 GM in D5W 110 ML IVPB SCH ×2 (06:00→14:00)
[2018-05-20 08:00] VITALS: BP 107/68
[2018-05-20] MEDS: Aspirin Baby 81mg ORAL SCH (09:00)
[2018-05-20] MEDS: Phenytoin Susp 100mg/4ml NG SCH (09:00)
[2018-05-20] MEDS: Docusate 100mg/10ml Liq GT SCH (09:00)
[2018-05-20] MEDS: carBAMazepine 200mg tab GT SCH (09:00)
[2018-05-20] MEDS: levETIRAcetam 500mg/5ml Liquid NG SCH (09:01)
[2018-05-20] MEDS: Metoprolol Succinate XL 50mg tab ORAL SCH (09:03)
[2018-05-20] MEDS: Heparin 5000 units/ml inj SUBQ SCH (09:03)
[2018-05-20] MEDS: Vancomycin 1.5 GM/D5W 250ML IVPB SCH (09:03)
--- NOTE | 2018-05-20 10:09 | General Progress Note ---
Assessment/Plan Assessment/Plan IMPRESSION: 1. Large right pleural effusion. s/p tap 2. Respiratory failure. 3. Tracheostomy. 4. Acute on chronic renal failure. 5. Lactic acidemia. 6. Leukocytosis. 7. Possible sepsis. 8. Severe protein-calorie malnutrition. 9. tachycardia 10. seizure PLAN hydration as per renal beta brianna with good results anti seizure meds with good control ativan prn renal and ID noted follow up labs for change wbc still elevated feeds monitor hemodynamics t/f zuniga today DNR Subjective ROS Limited/Unobtainable: Yes Allergies: Coded Allergies: No Known Allergies (Unverified , 04/03/17) Subjective poor LOC DNR no further seizure family updated Objective Last 24 Hour Vital Signs Date Time Temp Pulse Resp B/P (MAP) Pulse Ox O2 Delivery O2 Flow Rate FiO2 05/20/18 09:03 99 107/68 05/20/18 09:01 94 22 45 05/20/18 08:00 99 05/20/18 08:00 45 05/20/18 08:00 99.1 94 23 107/68 (81) 100 99.1 05/20/18 08:00 Mechanical Ventilator 05/20/18 07:12 100 23 45 05/20/18 05:28 110 26 45 05/20/18 04:00 Mechanical Ventilator 05/20/18 04:00 45 05/20/18 04:00 99.0 110 27 124/66 (85) 100 99.0 05/20/18 04:00 110 05/20/18 03:01 113 28 45 05/20/18 01:05 112 25 45 05/20/18 00:00 98.9 110 24 112/60 (77) 100 98.9 05/20/18 00:00 110 05/20/18 00:00 Mechanical Ventilator 05/19/18 23:12 123 28 45 05/19/18 22:01 118 133/73 05/19/18 21:04 117 26 45 05/19/18 20:00 45 05/19/18 20:00 98.6 118 26 133/73 (93) 100 98.6 05/19/18 20:00 121 05/19/18 20:00 Mechanical Ventilator 05/19/18 19:24 120 27 45 05/19/18 16:30 116 29 45 05/19/18 16:00 120 05/19/18 16:00 99.6 117 21 108/63 (78) 45 99.6 05/19/18 16:00 60 05/19/18 16:00 Mechanical Ventilator 05/19/18 15:15 125 24 50 05/19/18 13:05 129 25 50 05/19/18 12:00 60 05/19/18 12:00 Mechanical Ventilator 05/19/18 12:00 99.7 116 26 126/65 (85) 100 99.7 05/19/18 12:00 115 05/19/18 10:30 128 23 50 Intake and Output 05/19/18 05/20/18 19:00 07:00 Intake Total 1664.0 ml 1630 ml Output Total 300 ml 1000 ml Balance 1364.0 ml 630 ml Intake Free Water 100 ml 150 ml IV Total 1109.0 ml 900 ml Tube Feeding 455 ml 520 ml Other 60 ml Output Urine Total 300 ml 1000 ml # Bowel Movements 4 1 Labs Test 05/18/18 07:55 05/19/18 09:14 Vancomycin Level Trough 10.9 ug/mL (5.0-12.0) Arterial Blood pH 7.428 (7.350-7.450) Arterial Blood Partial Pressure CO2 37.7 mmHg (35.0-45.0) Arterial Blood Partial Pressure O2 249.0 mmHg (75.0-100.0) Arterial Blood HCO3 24.9 mmol/L (22.0-26.0) Arterial Blood Oxygen Saturation 99.2 % (92.0-98.0) Arterial Blood Base Excess 0.6 Ismael Test Positive Height (Feet): 5 Height (Inches): 7.00 Weight (Pounds): 200 Objective GENERAL: An ill-appearing female, withdrawn, poor LOC HEENT: Fairly negative. NECK: Supple. Tracheostomy is in midline. LUNGS: stable air entry specifically in the right lung. CARDIAC: S1 and S2. RRR ABDOMEN: Soft and nontender. GT EXTREMITIES: No cyanosis or clubbing. Ankit Bell MD May 20, 2018 10:09
--- NOTE | 2018-05-20 10:49 | Infectious Diseases Prog Note ---
"Assessment/Plan Assessment/Plan antibiotics : vancomycin iv, zosyn A 1. pseudomonas | serratia pneumonia 2. pleural effusion s/p thoracentesis 3. respiratory failure 4. renal failure improving 5. leucocytosis 6. hypertension 7. seizures P 1. continue zosyn 2. d/c iv vancomycin 3. will follow up cultures Subjective ROS Limited/Unobtainable: Yes Allergies: Coded Allergies: No Known Allergies (Unverified , 04/03/17) Objective Vital Signs Last 24 Hour Vital Signs Date Time Temp Pulse Resp B/P (MAP) Pulse Ox O2 Delivery O2 Flow Rate FiO2 05/20/18 09:03 99 107/68 05/20/18 09:01 94 22 45 05/20/18 08:00 99 05/20/18 08:00 45 05/20/18 08:00 99.1 94 23 107/68 (81) 100 99.1 05/20/18 08:00 Mechanical Ventilator 05/20/18 07:12 100 23 45 05/20/18 05:28 110 26 45 05/20/18 04:00 Mechanical Ventilator 05/20/18 04:00 45 05/20/18 04:00 99.0 110 27 124/66 (85) 100 99.0 05/20/18 04:00 110 05/20/18 03:01 113 28 45 05/20/18 01:05 112 25 45 05/20/18 00:00 98.9 110 24 112/60 (77) 100 98.9 05/20/18 00:00 110 05/20/18 00:00 Mechanical Ventilator 05/19/18 23:12 123 28 45 05/19/18 22:01 118 133/73 05/19/18 21:04 117 26 45 05/19/18 20:00 45 05/19/18 20:00 98.6 118 26 133/73 (93) 100 98.6 05/19/18 20:00 121 05/19/18 20:00 Mechanical Ventilator 05/19/18 19:24 120 27 45 05/19/18 16:30 116 29 45 05/19/18 16:00 120 05/19/18 16:00 99.6 117 21 108/63 (78) 45 99.6 05/19/18 16:00 60 05/19/18 16:00 Mechanical Ventilator 05/19/18 15:15 125 24 50 05/19/18 13:05 129 25 50 05/19/18 12:00 60 05/19/18 12:00 Mechanical Ventilator 05/19/18 12:00 99.7 116 26 126/65 (85) 100 99.7 05/19/18 12:00 115 Height (Feet): 5 Height (Inches): 7.00 Weight (Pounds): 200 HEENT: status post trach Respiratory/Chest: lungs clear Cardiovascular: normal rate, regular rhythm, no gallop/murmur Abdomen: soft, non tender, other - GT Extremities: no edema Current Medications Medications (Trade) Dose Ordered Sig/Mario Route PRN Reason Start Time Stop Time Status Last Admin Dose Admin Acetaminophen (Tylenol) 650 mg Q4H PRN GT Mild Pain/Temp > 100.5 05/12/18 18:15 06/11/18 18:14 05/14/18 22:28 Aspirin (ASA) 81 mg DAILY ORAL 05/13/18 09:00 06/12/18 08:59 05/20/18 09:00 Carbamazepine (TEGretol) 200 mg BID GT 05/18/18 18:00 06/17/18 17:59 05/20/18 09:00 Dextrose/ Electrolytes 1,000 ml @ 75 mls/hr [id number] IV 05/17/18 06:45 06/16/18 06:44 05/19/18 23:01 Docusate Sodium (Colace) 250 mg DAILY GT 05/13/18 09:00 06/12/18 08:59 05/20/18 09:00 Heparin Sodium (Porcine) (Heparin 5000 units/ml) 5,000 units EVERY 12 HOURS SUBQ 05/19/18 09:00 06/18/18 08:59 05/20/18 09:03 Levetiracetam (Keppra) 1,500 mg Q12HR NG 05/12/18 21:00 06/11/18 20:59 05/20/18 09:01 Metoprolol Succinate (Toprol XL) 50 mg Q12HR ORAL 05/15/18 09:00 06/14/18 08:59 05/20/18 09:03 Multivitamins (Multivitamins) 1 tab DAILY ORAL 05/13/18 09:00 8/9/18 08:59 05/20/18 09:00 Phenytoin (Dilantin) 175 mg EVERY 12 HOURS NG 05/12/18 21:00 06/11/18 20:59 05/20/18 09:00 Piperacillin Sod/ Tazobactam Sod 3.375 gm/Dextrose 110 ml @ 27.5 mls/hr Q8HR IVPB 05/12/18 22:00 05/20/18 23:00 05/20/18 06:00 Polyethylene Glycol (Miralax) 17 gm BEDTIME GT 05/15/18 21:00 06/14/18 20:59 05/19/18 22:00 Sennosides (Senokot) 2 tab BEDTIME ORAL 05/12/18 21:00 06/11/18 20:59 05/19/18 22:00 Vancomycin HCl (Vanco rx to dose) 1 ea DAILY PRN MISC Per rx protocol 05/12/18 18:45 06/11/18 18:44 Vancomycin HCl/ Dextrose 250 ml @ 125 mls/hr Q24H IVPB 05/19/18 09:00 05/24/18 08:59 05/20/18 09:03 JORDANA DINH May 20, 2018 10:48"
[2018-05-20 12:00] VITALS: BP 120/59
[2018-05-20] MEDS: D5W w/KCl 20mEq 1,000 ML IV SCH (14:45)
[2018-05-20 15:29] VITALS: BP 120/68
--- NOTE | 2018-05-20 23:58 | Cardiology Progress Note ---
Assessment/Plan Assessment/Plan 1. Hypotension, continue hydration. 2. Sinus tachycardia, slightly better, s/p right thoracentesis, removing 400 cc. Continue B-blockers. 3. Ventilatory-drive respiratory failure. 4. History of dysphagia, status post PEG placement. 5. History of seizure disorder. Subjective Subjective Sinus tachycardia at 112. Objective Last 24 Hour Vital Signs Date Time Temp Pulse Resp B/P (MAP) Pulse Ox O2 Delivery O2 Flow Rate FiO2 05/20/18 16:00 Mechanical Ventilator 05/20/18 16:00 45 05/20/18 15:29 98.0 112 23 120/68 (85) 100 98.0 05/20/18 15:21 109 23 30 05/20/18 12:45 108 24 35 05/20/18 12:00 45 05/20/18 12:00 98.5 107 24 120/59 (79) 100 98.5 05/20/18 12:00 101 05/20/18 12:00 Mechanical Ventilator 05/20/18 10:51 105 20 45 05/20/18 09:03 99 107/68 05/20/18 09:01 94 22 45 05/20/18 08:00 99 05/20/18 08:00 45 05/20/18 08:00 99.1 94 23 107/68 (81) 100 99.1 05/20/18 08:00 Mechanical Ventilator 05/20/18 07:12 100 23 45 05/20/18 05:28 110 26 45 05/20/18 04:00 Mechanical Ventilator 05/20/18 04:00 45 05/20/18 04:00 99.0 110 27 124/66 (85) 100 99.0 05/20/18 04:00 110 05/20/18 03:01 113 28 45 05/20/18 01:05 112 25 45 05/20/18 00:00 98.9 110 24 112/60 (77) 100 98.9 05/20/18 00:00 110 05/20/18 00:00 Mechanical Ventilator Intake and Output 05/19/18 05/20/18 19:00 07:00 Intake Total 1664.0 ml 1732.5 ml Output Total 300 ml 1000 ml Balance 1364.0 ml 732.5 ml Intake Free Water 100 ml 150 ml IV Total 1109.0 ml 1002.5 ml Tube Feeding 455 ml 520 ml Other 60 ml Output Urine Total 300 ml 1000 ml # Bowel Movements 4 1 2D Echo: EF 6-65%, Mild LVH, Grade I LVDD, RVSP 30 mmHg Objective HEENT: Atraumatic and normocephalic. Bitemporal wasting. Pupils are equal, round, and reactive to light and accommodation. NECK: JVP cannot be assessed due to positive inspiratory pressure. There is presence of tracheostomy tube. No carotid bruit. CARDIOVASCULAR: Normal S1 and S2. Regular rate and rhythm. Tachycardic. No murmurs, gallops, or rubs. LUNGS: Diminished breath sounds in the right lung. Positive dullness on percussion on the right lung. ABDOMEN: Soft, nontender, and nondistended. Presence of a G-tube. EXTREMITIES: No evidence of edema, clubbing, or cyanosis. Kehinde Kendrick MD May 20, 2018 23:58
== END 2018-05-20 16:30 | disposition short-term general hospital (02) | DRG 870 ==
LOC: EDBD 12:30 → EDBEDREQ 12:57 → EMR 13:24 → EDBEDREQ 14:23 → 2W 14:33 → EDBEDREQ 14:53 → 2W 16:00
PROC: 5A1955Z Respiratory Ventilation, Greater than 96 Consecutive Hours (ICD-10-PCS; principal; 2018-05-12)
PROC: 0W993ZZ Drainage of Right Pleural Cavity, Percutaneous Approach (ICD-10-PCS; 2018-05-16)
DX: A41.9 Sepsis, unspecified organism (principal); E43 Unspecified severe protein-calorie malnutrition; J15.1 Pneumonia due to Pseudomonas; G93.1 Anoxic brain damage, not elsewhere classified; J96.10 Chronic respiratory failure, unspecified whether with hypoxia or hypercapnia; Z99.11 Dependence on respirator [ventilator] status; N17.9 Acute kidney failure, unspecified; J90 Pleural effusion, not elsewhere classified; Z93.0 Tracheostomy status; Z93.1 Gastrostomy status; Z66 Do not resuscitate; I13.10 Hypertensive heart and chronic kidney disease without heart failure, with stage 1 through stage 4 chronic kidney disease, or unspecified chronic kidney disease; N18.9 Chronic kidney disease, unspecified; G40.901 Epilepsy, unspecified, not intractable, with status epilepticus; R62.7 Adult failure to thrive; Z68.31 Body mass index [BMI] 31.0-31.9, adult; F09 Unspecified mental disorder due to known physiological condition; R00.0 Tachycardia, unspecified; R13.10 Dysphagia, unspecified; I95.9 Hypotension, unspecified
CPT/HCPCS: 36415; 36600; 71045; 76942; 80048; 80053; 80202; 81003; 82550; 82553; 82803; 83605; 83880; 83986; 84484; 85007; 85025; 85610; 85730; 87040; 87070; 87081; 87086; 87181; 87205; 89051; 93005; 93306; 94002; 94003; 94640; 94664; 97803; 99291; J7620